=== PATIENT | male | born 1945 | race Caucasian/White ===

== ENCOUNTER 2023-11-25 09:57 | Emergency (ER) | payer MEDICARE, OTHER, SELFPAY ==
[2023-11-25 09:59] VITALS: BP 113/64
[2023-11-25 10:05] VITALS: BMI 26.6
--- NOTE | 2023-11-25 10:10 | ED.GENMED ---
History of Present Illness
General
Chief Complaint: Musculo-Skeletal Complaint
Time Seen by Provider: 11/25/23 10:09
Travel History
Have you had any contact with someone who has COVID-19?: No
Do you have any symptoms of coronavirus? Fever > 100 degrees, chills, cough, shortness of breath, sore throat, loss of taste or smell, muscle aches, or headache?: No
History of Present Illness
History of Present Illness:
HPI: Earlier today, the patient had some discomfort in the right low back region. He has a history of stroke with right-sided deficits. As he tried to swing his right leg over the lip of the shower floor, he lowered himself to the ground but did
not injure himself. He had trouble getting back up so EMS was called. EMS brought him here. He continues to feel the degree of 'instability' in the affected area.
EXAM:
GENERAL: Well appearing in no distress
HEENT: Moist oral mucosa
CARDIOVASCULAR: No murmurs, normal heart rate, regular rhythm, No chest wall tenderness
PULMONARY: No respiratory distress, breath sounds are clear and equal
ABDOMEN: Soft with no peritoneal signs, no tenderness
NEUROLOGIC: Weakness noted right upper and right lower extremities however the patient was able to take a few steps to the ED next with structure without assistance, no coordination deficits, no left-sided deficits
PSYCHIATRIC: Appropriate mental status, normal insight and judgement
EXTREMITIES: Nontender, no edema, moves all extremities equally
BACK: There is no midline T or L-spine tenderness, there is some vague discomfort to palpation just above the right PSIS however he describes the discomfort more of a 'instability'
SKIN: No rash, no lesions
TIME OF INITIAL ENCOUNTER: 10:10 AM
NUMBER AND COMPLEXITY OF PROBLEMS ADDRESSED AT THE ENCOUNTER
� Chronic conditions affecting care: Patient is had CVA in the past with right-sided deficits, diet-controlled diabetes
� Acute Exacerbation and/or Progression of Chronic Illness: This is an acute problem
� Differential Diagnosis includes: Ureteral stone unlikely, worsening spinal stenosis, pelvis fracture, lumbar fracture, myofascial/ligamentous injury
AMOUNT AND/OR COMPLEXITY OF DATA TO BE REVIEWED AND ANALYZED
� I performed an independent evaluation of and my interpretation is:
EKG:
CT: CT imaging reviewed and agree with radiologist interpretation.
X-rays:
Laboratory Studies:
Other:
� Review of other/old records: No old records available for review
� Clinical information was obtained by an independent historian: I spoke to at bedside
� Prescriptions/Medications Considered but not given:
� Further testing considered but not performed:
RISK OF COMPLICATIONS AND/OR MORBIDITY OR MORTALITY OF PATIENT MANAGEMENT
� Social determinants of health affecting care: Lives at home
� Discussion with other providers:
� Escalation of care including admission/observation vs risk of discharge considered: Will obtain CT imaging given patient's age. He declines analgesia. The patient was able to walk without any significant assistance. He does
have chronic right sided weakness related to prior stroke. No clear concerning acute finding on imaging today. I did inform him of the bladder stone and he has been seeing urology and has had a cystoscopy in the past. I have given contact
information for local back specialist as well as urology.
Phy Exam
Physical Exam
Physical Exam:
See HPI
Course
Orders/Labs/Results
Orders:
Orders
11/25/23 10:16
CT Lumbar Spine W/o Iv Contras Urgent
Comment:
Reason For Exam: pain fall instability R back
11/25/23 10:17
CT Abd/pel Without Iv Or Oral Urgent
Comment:
Reason For Exam: pain fall instability R back
Vital Signs
Initial and Last Documented VS:
Initial Vital Signs
Temp Pulse Resp BP Pulse Ox
97.6 F 62 16 113/64 96
11/25/23 09:59 11/25/23 09:59 11/25/23 09:59 11/25/23 09:59 11/25/23 09:59
Last Documented Vital Signs
Temp Pulse Resp BP Pulse Ox
97.6 F 62 16 112/50 96
11/25/23 09:59 11/25/23 09:59 11/25/23 09:59 11/25/23 11:16 11/25/23 10:14
*Critical Care Note
Total Time (30-74mins, 75-104mins- exclusive of procedures): Not Applicable
ED Attending Note
-
Portions of this chart may have been created with voice recognition software.� Occasional wrong word or��sound alike� substitutions may have occurred due to the inherent limitations of voice recognition software.
Discharge Plan
Departure
Patient Disposition: Home (Routine Discharge)
Date of Disposition: 11/25/23
Time of Disposition: 12:35
Patient with high blood pressure during this ER visit?: Yes
Discharge Problem:
Back pain
Referrals:
Ced Mckoy DO [Non-Admitting Privileges] - Follow up in 2-3 days
Farhad Booker MD [Family Provider] -
Cari Senior DO [Active] - Follow up in 2-3 days
Mauro Pennington MD [Active] - Follow up in 2-3 days
Nemesio Melgoza MD [Active] - Follow up in 2-3 days
Activity Restrictions/Additional Instructions:
I have given you the contact information for local back specialists. CT of the lumbar spine shows mild central canal stenosis exacerbated by multilevel lumbar degenerative disc disease, CT of the abdomen pelvis shows a 1.8 cm stone in the bladder,
enlarged prostate, and gallstones. I have also given the contact information for a local urologist, Dr. Pennington.
Interventions
Interventions:
*Risk Screen - Suicide Last Done: 11/25/23 10:06
*General Assessment Last Done: 11/25/23 10:05
*Neglect/Abuse Screening Last Done: 11/25/23 10:06
*ED COVID-19 Vaccine History Last Done: 11/25/23 10:05
ED-Musculoskeletal Assessment Last Done: 11/25/23 10:06
Discharge Date and Time
Print Language: UKRAINIAN
[2023-11-25 11:16] VITALS: BP 112/50
[2023-11-25 12:48] VITALS: BP 116/65
== END 2023-11-25 13:00 | disposition home or self-care (01) ==
LOC: EMR 09:57
PROVIDERS: EMERGENCY PHYSICIAN Emergency Medicine; FAMILY PHYSICIAN Family Medicine
DX: M54.9 Dorsalgia, unspecified (principal); N21.0 Calculus in bladder; I10 Essential (primary) hypertension
CPT/HCPCS: 99284; 72131; 74176

== ENCOUNTER 2024-04-06 17:33 | Inpatient (IN) | payer MEDICARE, OTHER, SELFPAY ==
[2024-04-06] VITALS (14 sets, daily range): BP systolic 126–158; BP diastolic 61–90; PULSE 71; O2SAT 99; BMI 25.9
[2024-04-06 12:38] LABS: % Basophils 0.4 % (0-2); % Eosinophils 0.2 % (0-6); % Immature Granulocytes 0.2 % (0-0.5); % Lymphocytes 13.3 % (20.5-51.1); % Monocytes 6.1 % (1.7-9.3); % Neutrophils 79.8 % (42.2-75.2); Absolute Basophils 0.1 10^3/uL (0-0.2); Absolute Lymphocytes 1.5 10^3/uL (1.2-3.4); Absolute Monocytes 0.7 10^3/uL (0.1-0.6); Absolute Neutrophils 8.9 10^3/uL (1.4-6.5); Hematocrit 43.1 % (39.0-52.0); Hemoglobin 14.7 g/dL (13.0-18.0); Mean Corp Hgb Conc. 34.1 g/dL (33.0-37.0); Mean Corpuscular Hgb 31.7 pg (27.0-31.0); Mean Corpuscular Volume 93.1 fL (80.0-94.0); Mean Platelet Volume 10.3 fL (7.4-10.4); Nucleated Red Blood Cells % 0 % (-); Platelet Count 227 10^3/uL (130-400); Red Blood Cell Count 4.63 10^6/uL (4.70-6.10); Red Cell Dist. Width 13.8 % (11.5-14.5); White Blood Cell Count 11.1 10^3/uL (4.8-10.8)
[2024-04-06 13:03] LABS: Blood Urea Nitrogen 41 mg/dl (9-20); Calcium 10.8 mg/dl (8.4-10.2); Carbon Dioxide 26 mmol/L (22-30); Chloride 105 mmol/L (98-107); Glucose 103 mg/dl (70-99); Sodium 141 mmol/L (135-145); eGFR 56.58
[2024-04-06] MEDS: VALIUM INJECTION 2 MG IV (14:04)
[2024-04-06] MEDS: DECADRON 10 MG IV (14:04)
--- NOTE | 2024-04-06 14:10 | ED.GENMED ---
History of Present Illness
General
Chief Complaint: Abdominal Symptoms
Source: patient
Exam Limitations: none
Time Seen by Provider: 04/06/24 13:13
Nursing documentation reviewed up to this point in time: agreed with
History of Present Illness
History of Present Illness:
78-year-old male past medical history of CAD hypertension hyperlipidemia, previous GI bleed, diabetes presenting to the emergency department today with concerns of right-sided low back discomfort starting 5 days ago was prescribed Flexeril started
taking this yesterday evening. Throughout the night he had some diarrhea and also had some difficulty urinating this morning. Does have a history of significantly enlarged prostate and does have difficulty urinating at baseline has required Macdonald
catheters many times in the past. He has had worsening lower abdominal to his lack of urination. Additionally has had ongoing low back pain. Has had trouble ambulating today.
Review of Systems
Review of Systems
Allergies reviewed?: Yes
All Other Systems: ROS reviewed and negative except as documented in HPI and ROS
Phy Exam
Physical Exam
Physical Exam:
GENERAL: Alert , in no apparent distress
EYE: pupils equal and reactive
NECK: Supple, no significant adenopathy.
ENT: o/p clr, mmm.
CARDIAC: Regular rate and rhythm .
LUNGS: Clear breath sounds bilaterally, no acute respiratory distress, no wheezes/rales/rhonchi
ABDOMEN: Discomfort and distention to the suprapubic region otherwise soft, without focal tenderness, no r/g, no cvat
NEUROLOGICAL: Alert and oriented, no focal neuro deficits
SKIN: Warm and dry, skin intact.
MUSCULOSKELETAL: No edema, well perfused.
PSYCH: Normal and appropriate interaction.
Course
Orders/Labs/Results
Orders:
Orders
04/06/24 12:22
Basic Metabolic Panel Urgent
Complete Blood Count/With Diff Urgent
04/06/24 13:27
CT Abd/pel Without Iv Or Oral Urgent
Comment:
Reason For Exam: flank pain
Dexamethasone Sod Phosphate [Decadron] 10 mg IV NOW STA
diazePAM [Valium Injection] 2 mg IV NOW STA
04/06/24 13:52
Urinalysis Reflex To Culture Urgent
Date Specimen was Collected: 04/06/24
Time Specimen was Collected: 13:39
Urine Microscopic Reflex Cult Urgent
Urine Culture Urgent
YASH Source: U
Specimen Description:
Date Specimen was Collected: 04/06/24
Time Specimen was Collected: 13:39
04/06/24 14:39
Pt Eval And Treat Urgent
Treatment: back issue, eval for ambulatory status
Activity Level: Ambulate
04/06/24 16:10
CefTRIAXone [Rocephin] 1,000 mg IV NOW STA
HYDROmorphone [Dilaudid] 1 mg IV NOW STA
Abnormal Lab Results
04/06/24 04/06/24
12:22 13:52
WBC 11.1 H 10^3/uL
(4.8-10.8)
RBC 4.63 L 10^6/uL
(4.70-6.10)
MCH 31.7 H pg
(27.0-31.0)
Absolute Neuts (auto) 8.9 H 10^3/uL
(1.4-6.5)
Absolute Monos (auto) 0.7 H 10^3/uL
(0.1-0.6)
Neutrophils % 79.8 H %
(42.2-75.2)
Lymphocytes % 13.3 L %
(20.5-51.1)
BUN 41 H mg/dl
(9-20)
Glucose 103 H mg/dl
(70-99)
Calcium 10.8 H mg/dl
(8.4-10.2)
Ur Occult Blood Reflex 1+ A
(Negative)
Leukocyte Esterase Rfl 2+ A
(Negative)
Urine RBC 30-40 A /HPF
(0-2)
Urine WBC (Reflex) 90-100 A /HPF
(0-5)
04/06/24 12:22
04/06/24 12:22
Vital Signs
Initial and Last Documented VS:
Initial Vital Signs
Temp Pulse Resp BP Pulse Ox
98.3 F 83 18 149/86 97
04/06/24 12:15 04/06/24 12:15 04/06/24 12:15 04/06/24 12:15 04/06/24 12:15
Last Documented Vital Signs
Temp Pulse Resp BP Pulse Ox
98.3 F 71 12 135/76 96
04/06/24 12:15 04/06/24 16:15 04/06/24 16:15 04/06/24 16:00 04/06/24 16:15
MDM/Problems Addressed
MDM/Problems Addressed:
78-year-old male presenting to the emergency department today with concerns of right-sided low back discomfort over the past 5 days progressing over the past 5 days. Started Flexeril last night had some diarrhea as well as difficulty urinating this
morning. Denies any numbness weakness to his lower extremities or any saddle anesthesia. Does not seem to be consistent with cauda equina. Patient does frequently have difficulty with urination likely secondary to his significantly enlarged
prostate at baseline. Cauda equina seems less likely considering no additional neurologic symptoms. Patient does have conditions predisposing to retention. Urine did come back with white blood cells and leuks plan to start antibiotics as this
could be contributory. White count of 11.1. Otherwise CT scan showing dilatation to the ureter. Also a possible stone but seems less likely according to radiology Case was discussed with urology that agrees and feels this does not appear to be an
obstructing stone. Patient was seen by PT unable to ambulate plan to admit for pain control and further monitoring of patient's UTI in setting of solitary kidney.
*Critical Care Note
Total Time (30-74mins, 75-104mins- exclusive of procedures): Not Applicable
ED Attending Note
-
Portions of this chart may have been created with voice recognition software.� Occasional wrong word or��sound alike� substitutions may have occurred due to the inherent limitations of voice recognition software.
Discharge Plan
Departure
Patient Disposition: Admit
Date of Disposition: 04/06/24
Time of Disposition: 16:25
Admit to: Med/Surg
Admit to doctor: Hayley
Presentation/result/management discussed w/ accepting MD/DO: Hospitalist
Patient with high blood pressure during this ER visit?: No
Condition: Good
Covid-19: Not Applicable
Discharge Problem:
Back pain, Acute UTI, Acute urinary retention
Prescriptions:
No Action
hydrocodone-acetaminophen 5-325 mg tablet
1 tab PO Q8H PRN (Reason: Pain) Qty: 14 0RF
Referrals:
Farhad Booker MD [Family Provider] -
Interventions
Interventions:
*Risk Screen - Suicide Last Done: 04/06/24 12:15
*General Assessment Last Done: 04/06/24 12:15
*Neglect/Abuse Screening Last Done: 04/06/24 12:15
WM-Fswpmz-Ktosxkjzsr Assessment Last Done: 04/06/24 12:34
Discharge Date and Time
Print Language: SYRIAC
[2024-04-06 14:13] LABS: Urine Albumin Trace (Neg - Trace); Urine Bilirubin Negative (Negative); Urine Character Clear (Clear); Urine Color Yellow; Urine Glucose Negative (Negative); Urine Ketone Negative (Negative); Urine Leukocyte 2+ (Negative); Urine Nitrite Negative (Negative); Urine Occult Blood 1+ (Negative); Urine Urobilinogen Negative (Neg - 1+)
[2024-04-06 15:19] LABS: Urine Red Blood Cell 30-40 /HPF (0-2); Urine Squamous Cell 0-2 /LPF (Few); Urine White Cell 90-100 /HPF (0-5)
--- NOTE | 2024-04-06 16:27 | HPS.HSE ---
Addendum entered and electronically signed by Gus Mckeon MD 04/06/24 17:21:
see update note for addendum
Original Note:
Family Physician
-
Family Physician: Farhad Booker
Chief Complaint
-
right lower back pain
History of Present Illness
78-year-old male past medical history of CAD hypertension hyperlipidemia, previous GI bleed, diabetes presenting to the emergency department today with concerns of right-sided low back discomfort starting 5 days ago was prescribed Flexeril started
taking this yesterday evening. Throughout the night he had some diarrhea and also had some difficulty urinating since he started Flexeril. today morning he was not able to stant, walk and can not place any pressure on his legs. it aggravates his
pain. patient denied SETHI, dizzy or syncopal episode. denied fever, chills, chest pain, sob.denied abdominal pain,n,v.
UPon arrival noted to have UA. still with significant right lower back pain. received iv ceftriaxone,ceftriaxone, Valium and Dilaudid in ER. admitting for further management.
Medical History
Past Medical History
Past Medical History: Reports Other
Additional Past Medical History:
Diabetes
Hypertension
High cholesterol
left kidney tumor
CVA
Past Surgical History: Reports Other
Additional Past Surgical History:
Removal of left kidney
cervical fusion
Coronary artery bypass graft
Social History
Tobacco: Former Smoker
Alcohol: None
Drug: None
Personal:
Living: With Family
Family History
Family History: Not pertinent
Allergies / Home Medications
Allergies reflects when Allergies were last updated in [facility].
Home Medications with original date entered in [facility]
Allergy/Medication List:
Allergies
Allergy/AdvReac Type Severity Reaction Status Date / Time
No Known Allergies Allergy Verified 04/06/24 12:15
Home Medications
acetaminophen 650 mg tablet,extended release 1,300 mg PO BID 04/06/24
amlodipine 5 mg tablet 5 mg PO HS 04/06/24
ascorbic acid (vitamin C) 1,000 mg tablet (Vitamin C) 1,000 mg PO DAILY 04/06/24
chlorthalidone 25 mg tablet 25 mg PO Q48H 04/06/24
cholecalciferol (vitamin D3) 25 mcg (1,000 unit) tablet 25 mcg PO DAILY 04/06/24
clopidogrel 75 mg tablet 75 mg PO DAILY 04/06/24
cyclobenzaprine 10 mg tablet 10 mg PO TIDPRN PRN muscle spasm 04/06/24
finasteride 5 mg tablet 5 mg PO DAILY 04/06/24
gabapentin 100 mg capsule 100 mg PO HS 04/06/24
pitavastatin calcium 2 mg tablet 2 mg PO Q48H@2200 04/06/24
ramipril 10 mg capsule 10 mg PO HS 04/06/24
tamsulosin 0.4 mg capsule 0.4 mg PO BID 04/06/24
Review of Systems
-
Constitutional: Reports No Symptoms
EENT: Reports No Symptoms
Respiratory: Reports No Symptoms
Cardiac: Reports No Symptoms
Abdomen/GI: Reports No Symptoms
: Reports No Symptoms
Musculoskeletal: Reports Other (right lower back)
Skin: Reports No Symptoms
Neurological: Reports No Symptoms
Endocrine: Reports No Symptoms
Hematologic/Lymphatic: Reports No Symptoms
Psych: Reports No Symptoms
Physical Exam
Vital Signs
Vital Signs
Temp Pulse Resp BP Pulse Ox
98.3 F 71 12 135/76 96
04/06/24 12:15 04/06/24 16:15 04/06/24 16:15 04/06/24 16:00 04/06/24 16:15
Physical Exam
General: Well Developed, Well Nourished and No Apparent Distress
HEENT: NormoCephalic, Moist mucous membranes and Atraumatic
Respiratory: Clear
Cardiac: S1/S2 and Regular Rhythm; No Murmur or Rub
GI: Soft, Non Tender, Non Distended and Normal Bowel Sounds; No Organomegaly
Rectal: Deferred by Provider
Genito-urinary: Macdonald
Musculoskeletal: No Clubbing, No Cyanosis and Other (LE edema)
Skin: No Rash
Neuro: AO x 3 and Nonfocal/grossly intact
Psych: Calm
Laboratory Results
-
04/06/24 12:22
04/06/24 12:22
Laboratory Results
Total Bilirubin Cancelled 04/06/24 12:22
AST Cancelled 04/06/24 12:22
ALT Cancelled 04/06/24 12:22
Alkaline Phosphatase Cancelled 04/06/24 12:22
Data Reviewed
-
CT Scan: Report Reviewed by me
Lab Data: Labs Reviewed by me
Impression/Plan
-
#back pain likely UTI/possible right UVJ calculus
#solitary kidney due to malignant tumor
-wbc 11.1
-CT abdomen pelvis with Status post left nephrectomy.3 mm nephrolith in the lower pole of the right kidney. There is diffuse right ureteral and right pelvicalyceal dilation extending to the right ureterovesical junction. There is a small
calcification near the junction of the of the superior prostate and the collapsed bladder, just right lateral to the Macdonald catheter. This would seem to be more medial than expected for a right ureterovesical junction calculus, but could possibly be
a right UVJ calculus, with anatomic distortion due to the collapsed bladder. Other main differential consideration for right ureteral obstruction would be due to the enlarged prostate gland.Cholelithiasis. No CT findings to suggest acute
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
syndesmophytes in the lower thoracic and upper lumbar spine.ot mentioned above, on workforce services representative radiograph, the scrotum appears distended. The scrotum is incompletely included on the field of view, but there appears to be increased fluid density within the
visualized upper scrotum.
-iv ceftriaxone continued
-Lidocaine patch, Dilaudid and tramadol continued for pain
-heating pad
-urology consulted
#ambulatory dysfunction likely from back pain
- PT/OT consult
# Essential hypertension
-Blood pressure stable
-Norvasc, chlorthalidone, ramipril continued with hold parameters
# History of coronary artery disease status post coronary stents
-Plavix continued
# History of CVA
# History of BPH
-Finasteride, tamsulosin continued
# Neuropathy
-gabapentin continued
# Hyperlipidemia
- statin continued
# DVT prophylaxis
- SCD
# CODE STATUS
-Full code
[2024-04-06] MEDS: ROCEPHIN 1000 MG IV (16:36)
[2024-04-06] MEDS: DILAUDID 1 MG IV (16:36)
--- NOTE | 2024-04-06 17:21 | W.PN.UPDATE ---
Update Note
Progress Note Update
I saw and examined the patient.
The MACHINE EGG WASHER Olvin's note was reviewed and I agree with the note.
Comment: 78 y/o M, hx of CAD, HTN, HLD, prior hx of GI bleed from NSAIDs, DM, presents to ER with 5 day history of R sided back pain, 6/10, worse with standing up, nonradiating, sharp in character. No trauma or recent spinal procedures/injections
etc. Prescribed Flexeril but resulted in diarrhea, urinary retention, did not provide relief of pain. Presented to ER due to ambulatory function, seen by PT/OT recommended for SNF and admitted for pain control. Also concern for UTI - started on IV
Abx and Urology consulted. Macdonald is in place.
Physical Exam
General: Well Developed, Well Nourished and No Apparent Distress
HEENT: Normocephalic, Moist mucous membranes and Atraumatic
Respiratory: Clear
Cardiac: S1/S2 and Regular Rhythm; No Murmur or Rub
GI: Soft, Non Tender, Non Distended and Normal Bowel Sounds; No Organomegaly
Rectal: Deferred by Provider
Genito-urinary: Macdonald
Musculoskeletal: No Clubbing, No Cyanosis and Other (LE edema)
Skin: No Rash
Neuro: AO x 3 and Nonfocal/grossly intact
Psych: Calm
Assessment:
Acute back pain
Reported history of spinal stenosis and spinal arthritis
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
- pain control
- note cannot have NSAIDs due to prior hx of GI bleed
- Also refuses Flexeril due to side effects
- add lidocaine patches, heat
- consider further IV steroids - will assess response of ER dose first
- PT/OT - currently recommended SNF
- request spinal ortho evaluation - patient seen by Dr. Senior previously
UTI
Hx of BPH
Hx of Solitary Kidney (L nephrectomy for tumor)
- CT abdomen pelvis with Status post left nephrectomy.3 mm nephrolith in the lower pole of the right kidney. There is diffuse right ureteral and right pelvicaliceal dilation extending to the right ureterovesical junction. There is a small
calcification near the junction of the of the superior prostate and the collapsed bladder, just right lateral to the Macdonald catheter. This would seem to be more medial than expected for a right ureterovesical junction calculus, but could possibly be
a right UVJ calculus, with anatomic distortion due to the collapsed bladder. Other main differential consideration for right ureteral obstruction would be due to the enlarged prostate gland.
- Empiric Rocephin, pending culture
- Urology consult
- continue BPH meds
- continue Macdonald
Ambulatory dysfunction from acute back pain
- PT/OT evals
Essential HTN
- continue Norvasc, Chlorthalidone, Ramipril
Hx of CAD s/p stents
- continue Plavix
Hx of CVA
- continue Plavix
Neuropathy
- gabapentin continued
Hyperlipidemia
- statin continued
DVT prophylaxis: Lovenox
Code: Full
--- NOTE | 2024-04-06 19:19 | PTCARENOTE ---
Pt arrived from ED via stretcher, transferred to bed. Pt aaox3, cooperative. denies pain, sob or dizziness. anderson draining yellow/ blood tinged urine with small clots. oriented to room. call white within reach.
--- NOTE | 2024-04-06 20:21 | CON.MD ---
Consultation - Medical
-
see dictated note
pt long standing pt of dr rose at [facility]
seen within the last 2-3 months
hx of left nx for tumor in the
long standing hx of bph and known bladder stone- being observed
takes flomax bid and proscar
has generally not a sense of incomplete emptying
recent sever back pain- put on flexeril
went into [facility]- in ER anderson placed 800cc of urine
ua +
ct shows hydro and hydro-ureter down to bladder c/w BPH/obstruction- bladder stone present
cr at baseline
pt's urine octavio (he is on plavix and now lovenox)
plan
continue anderson and prostate meds
observe for hematuria- may need temp hold of lovenox and plavix
excellent UO- so kidney is not obstructed
f/u ucx
pt should be discharged with anderson given ER/CT findings and mobility limitations and f/u with dr rose after discharge to discuss management
[2024-04-06] MEDS: FLOMAX 0.4 MG PO (21:36)
[2024-04-06] MEDS: LOVENOX 40 MG SC (21:36)
[2024-04-06] MEDS: NEURONTIN 100 MG PO (21:37)
[2024-04-06] MEDS: ALTACE 10 MG PO (21:37)
[2024-04-06] MEDS: NORVASC 5 MG PO (21:37)
[2024-04-07] MEDS: ULTRAM 50 MG PO ×2 (01:53→21:26)
[2024-04-07 05:01] LABS: Hematocrit 44.1 % (39.0-52.0); Hemoglobin 15.2 g/dL (13.0-18.0); Mean Corp Hgb Conc. 34.5 g/dL (33.0-37.0); Mean Corpuscular Hgb 32.9 pg (27.0-31.0); Mean Corpuscular Volume 95.5 fL (80.0-94.0); Mean Platelet Volume 10.3 fL (7.4-10.4); Platelet Count 217 10^3/uL (130-400); Red Blood Cell Count 4.62 10^6/uL (4.70-6.10); Red Cell Dist. Width 13.6 % (11.5-14.5); White Blood Cell Count 8.9 10^3/uL (4.8-10.8)
--- NOTE | 2024-04-07 05:09 | W.PN.URO.CBU ---
Today's Communication / Plan
-
continue anderson
await ucx
Assessment / Plan
-
urinary retention
BPH
bladder stone
UTI
solitary right kidney with hydro secondary to BPH
appears urologically stable
continue proscar and flomax
await ucx
eventual discharge with catheter and outpt f/u with his usual urologist
Diagnosis
-
Date of Service: April 07, 2024
-
Patient Diagnosis:
urinary retention
massive BPH
bladder stone
solitary kidney
UTI
Subjective
-
pt comfortable
still with back pain with movement
good UO- octavio with sediment- ucx pending
Objective
-
Vital Signs
Temp Pulse Resp BP Pulse Ox
97.5 F 76 18 139/73 969
04/06/24 23:43 04/06/24 23:43 04/06/24 23:43 04/06/24 23:43 04/06/24 23:43
Laboratory Results
04/07/24 04:36
Review of Systems
-
Constitutional: Fatigue
Respiratory: No Symptoms
Cardiac: No Symptoms
Abdomen/GI: No Symptoms
Physical Exam
-
General - no acute distress
Abdomen - soft, non-tender
Genitalia - anderson in place
[2024-04-07 05:36] LABS: Blood Urea Nitrogen 39 mg/dl (9-20); Calcium 10.7 mg/dl (8.4-10.2); Carbon Dioxide 27 mmol/L (22-30); Chloride 105 mmol/L (98-107); Estimated Creatinine Clearance 57 ml/min; Glucose 123 mg/dl (70-99); Potassium 4.3 mmol/L (3.5-5.1); Sodium 143 mmol/L (135-145); eGFR > 60.00
[2024-04-07 07:40] VITALS: BP 137/83
[2024-04-07 09:10] VITALS: BP 135/77; PULSE 76; O2SAT 97
[2024-04-07] MEDS: PROSCAR 5 MG PO (09:18)
[2024-04-07] MEDS: Hygroton 25 MG PO (09:18)
[2024-04-07] MEDS: FLOMAX 0.4 MG PO ×2 (09:18→20:34)
[2024-04-07] MEDS: PLAVIX 75 MG PO (09:18)
[2024-04-07] MEDS: DESENEX/MITRAZOL/ZEASORB 1 APPLIC TOPICAL ×2 (09:20→20:35)
--- NOTE | 2024-04-07 12:33 | W.PN.HOSP.TC ---
Today's Communication/Plan
-
ongoing rehab evals
continue IV Abx pending cultures
Assessment / Plan
Assessment / Plan
Assessment:
Acute back pain
Reported history of spinal stenosis and spinal arthritis
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
- pain control
- note cannot have NSAIDs due to prior hx of GI bleed
- Also refuses Flexeril due to side effects
- continue lidocaine patches, heat
- s/p 1 dose IV steroids
- PT/OT - currently recommended SNF vs home. Ongoing PT/OT evals
- request spinal ortho evaluation - patient seen by Dr. Senior previously but this doctor is not practicing at any longer.
complicated UTI
Hx of BPH
Hx of Solitary Kidney (L nephrectomy for tumor)
- CT abdomen pelvis with Status post left nephrectomy.3 mm nephrolith in the lower pole of the right kidney. There is diffuse right ureteral and right pelvicaliceal dilation extending to the right ureterovesical junction. There is a small
calcification near the junction of the of the superior prostate and the collapsed bladder, just right lateral to the Macdonald catheter. This would seem to be more medial than expected for a right ureterovesical junction calculus, but could possibly be
a right UVJ calculus, with anatomic distortion due to the collapsed bladder. Other main differential consideration for right ureteral obstruction would be due to the enlarged prostate gland.
- Empiric Rocephin, day 2, pending culture
- Urology consulting; recommending Macdonald at [facility] and f/u with [facility]
- continue BPH meds
Ambulatory dysfunction from acute back pain
- PT/OT evals ongoing
Essential HTN
- continue Norvasc, Chlorthalidone, Ramipril
Hx of CAD s/p stents
- continue Plavix
Hx of CVA
- continue Plavix
Neuropathy
- gabapentin continued
Hyperlipidemia
- statin continued
DVT prophylaxis: SCDs
Code: Full
Anticipated Discharge: 24 - 48 hours
Subjective/Interval History
-
Date of Service: April 07, 2024
back pain improving with Macdonald insertion and decompression
remain on IV Abx
did ok with Pt per his report
Objective Data
-
Labs:
Laboratory Results
04/07/24
04:36
WBC 8.9
Hgb 15.2
Hct 44.1
Plt Count 217
Sodium 143
Potassium 4.3
Chloride 105
Carbon Dioxide 27
BUN 39 H
Creatinine 1.2
Glucose 123 H
Calcium 10.7 H
Vital Signs:
Vital Signs
Temp Pulse Resp BP Pulse Ox
99.3 F 86 16 137/83 97
04/07/24 07:40 04/07/24 07:40 04/07/24 07:40 04/07/24 09:18 04/07/24 07:40
I&O
04/06/24 04/07/24 04/08/24
06:59 06:59 06:59
Intake Total 720 / 720
Output Total 1025 / 1025
Balance -305 / -305
Physical Exam
-
General: No Apparent Distress
HEENT: Normocephalic and Atraumatic
Respiratory: Negative Wheezes
Cardiac: Regular Rhythm and S1/S2
GI: Soft
Genito-urinary: No Costovertebral Tender and Macdonald (octavio)
Neuro: AO x 3
Psych: Calm
Data Reviewed
-
Total Time Spent with Patient (in minutes): 42
Labs: Labs Reviewed by me
--- NOTE | 2024-04-07 13:13 | CM ---
Addendum entered by Eleonora Roach 04/07/24 14:55:
CM met with Yossi and his this afternoon. Yossi is feeling a lot better and anticipates returning home at discharge. He does not think he will need home care and will be going to see his urologist to have the anderson removed early next week.
Yossi's only concern is getting into the house; he has 3 entry steps from his garage which are the only way he can get into the house. PT is aware of this and there is a plan for working on stairs with therapy tomorrow. If he does well he will not
need home health. If he is concerned about strengthening, he may want to consider home care services.
Plan: Discharge to home with home care vs. no needs; to be determined by therapy results tomorrow.
Original Note:
CM met with Yossi to complete IA. He was admitted with urinary retention and back pain; anderson in place; unclear if that will remain at discharge.
Yossi lives with his in a 2 story home with 3 entry steps. Yossi is nervous about the entry steps.
He stays on the first floor where he has his bed (with rails) and bathroom. Yossi has a cane, RW and w/c at home, but has not been using.
He was seen earlier today walking slowly with therapy using a RW on the unit. Home Care would be an option if desired for anderson care and/or continued therapy. Current recommendations are for home health vs. SNF.
Plan: CM will continue to follow to assist with discharge planning needs; likely home with home health services.
PCP: Farhad Booker
Pharmacy: [facility] on [facility] in [place]
[2024-04-07 15:17] VITALS: BP 138/81; PULSE 74; O2SAT 98
[2024-04-07 15:40] VITALS: BP 134/70
[2024-04-07] MEDS: ROCEPHIN 1000 MG IV (17:28)
[2024-04-07] MEDS: STERILE WATER FOR INJECTION 10 ML IV (17:28)
[2024-04-07] MEDS: FLUSH (NSS) 2 FLUSH IV (17:29)
[2024-04-07] MEDS: LIDOCAINE 4% PATCH 1 PATCH TOPICAL (20:34)
[2024-04-07] MEDS: ALTACE 10 MG PO (21:26)
[2024-04-07] MEDS: NORVASC 5 MG PO (21:26)
[2024-04-07] MEDS: NEURONTIN 100 MG PO (21:27)
[2024-04-07] MEDS: LIPITOR 10 MG PO (21:28)
[2024-04-07 23:58] VITALS: BP 118/60
--- NOTE | 2024-04-08 06:17 | W.PN.URO.CBU ---
Today's Communication / Plan
-
continue f/u
outpt f/u with his established urologist
Assessment / Plan
-
urinary retention
BPH
bladder stone
UTI
solitary right kidney with hydro secondary to BPH
appears urologically stable
continue proscar and flomax
await ucx- treat as indicated
pt is making appointment to f/u with his established urologist
will follow peripherally- call with any questions
Diagnosis
-
Date of Service: April 08, 2024
-
Patient Diagnosis:
urinary retention
massive BPH
bladder stone
solitary kidney
UTI
Subjective
-
pt stable urologically
anderson in- urine clear
cr at baseline
ucx still pending
back pain better- but still limiting
Objective
-
Vital Signs
Temp Pulse Resp BP Pulse Ox
97.7 F 62 18 118/60 94
04/07/24 23:58 04/07/24 23:58 04/07/24 23:58 04/07/24 23:58 04/07/24 23:58
Intake and Output
04/06/24 04/07/24 04/08/24
06:59 06:59 06:59
Intake Total 720 / 720
Output Total 1025 / 1025
Balance -305 / -305
Intake:
Oral fluids 720 / 720
Output:
Urine, Anderson 1025 / 1025
Physical Exam
-
General - no acute distress
[2024-04-08 06:47] LABS: Mean Corp Hgb Conc. 34.1 g/dL (33.0-37.0); Mean Corpuscular Hgb 32.6 pg (27.0-31.0); Mean Corpuscular Volume 95.6 fL (80.0-94.0); Mean Platelet Volume 10.6 fL (7.4-10.4); Platelet Count 203 10^3/uL (130-400); Red Blood Cell Count 4.29 10^6/uL (4.70-6.10); Red Cell Dist. Width 13.9 % (11.5-14.5); White Blood Cell Count 9.3 10^3/uL (4.8-10.8)
[2024-04-08] MEDS: ULTRAM 50 MG PO (06:48)
[2024-04-08 07:28] LABS: Blood Urea Nitrogen 50 mg/dl (9-20); Calcium 10.6 mg/dl (8.4-10.2); Carbon Dioxide 29 mmol/L (22-30); Chloride 103 mmol/L (98-107); Estimated Creatinine Clearance 52 ml/min; Glucose 84 mg/dl (70-99); Potassium 4.2 mmol/L (3.5-5.1); Sodium 140 mmol/L (135-145); eGFR 56.58
[2024-04-08 07:40] VITALS: BP 124/57
[2024-04-08] MEDS: PLAVIX 75 MG PO (09:06)
[2024-04-08] MEDS: FLOMAX 0.4 MG PO ×2 (09:06→20:03)
[2024-04-08] MEDS: DESENEX/MITRAZOL/ZEASORB 1 APPLIC TOPICAL ×2 (09:06→20:04)
[2024-04-08] MEDS: PROSCAR 5 MG PO (09:07)
--- NOTE | 2024-04-08 09:21 | PHA.VAN.IN ---
Assessment
- Assessment
Renal Function: Appears similar to baseline
Plan
- Plan
Initial / Loading Dose: 2000mg - administration pending
Maintenance Regimen: dosing by level
Monitoring: random 04/09 600
Will start with dose by level for now to ensure clearing appropriately with solitary kidney
Pharmacokinetics Vancomycin I
- -
Patient Age: 78
Patient Sex: Male
Vancomycin Day #: 1
Indication: Genito-Urinary Tract
Requesting Provider: Dr. Mckeon
Pertinent Antimicrobial Allergies:
NKDA
Height / Weight:
Height 6 ft
Actual Weight 86.636 kg
Pertinent Past Medical History: Solitary R. kidney
- Vital Signs / Lab Results
Temp Pulse Resp BP Pulse Ox
97.6 F 55 16 124/57 98
04/08/24 07:40 04/08/24 07:40 04/08/24 07:40 04/08/24 07:40 04/08/24 07:40
Lab Results - Hematology
04/06/24 04/07/24 04/08/24
12:22 04:36 05:00
WBC 11.1 H 8.9 9.3
Lab Results - Chemistry
04/06/24 04/07/24 04/08/24
12:22 04:36 05:00
BUN 41 H 39 H 50 H
Creatinine 1.3 1.2 1.3
Estimated Creat Clear 57 52
Albumin Cancelled
Lab Results - Urine
04/06/24
13:52
Urine Nitrite (Reflex) Negative
Leukocyte Esterase Rfl 2+ A
Urine WBC (Reflex) 90-100 A
Ur Squamous Epith Cells 0-2
Microbiology Results
04/06/24 13:52 Urine Culture - Preliminary
Urine Enterococcus species
[2024-04-08] MEDS: VANCOCIN 540 MG IV (09:43)
--- NOTE | 2024-04-08 11:42 | W.PN.HOSP.TC ---
Today's Communication/Plan
-
switched to Vanco pending urine cultures
repeat rehab evals today if able
Assessment / Plan
Assessment / Plan
Assessment:
Acute back pain
Reported history of spinal stenosis and spinal arthritis
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
- pain control
- note cannot have NSAIDs due to prior hx of GI bleed
- Also refuses Flexeril due to side effects
- continue lidocaine patches, heat
- s/p 1 dose IV steroids
- PT/OT - currently recommended SNF vs home. Ongoing PT/OT evals
- request spinal ortho evaluation - patient seen by Dr. Senior previously but this doctor is not practicing at any longer.
complicated UTI
Hx of BPH
Hx of Solitary Kidney (L nephrectomy for tumor)
- CT abdomen pelvis with Status post left nephrectomy.3 mm nephrolith in the lower pole of the right kidney. There is diffuse right ureteral and right pelvicaliceal dilation extending to the right ureterovesical junction. There is a small
calcification near the junction of the of the superior prostate and the collapsed bladder, just right lateral to the Macdonald catheter. This would seem to be more medial than expected for a right ureterovesical junction calculus, but could possibly be
a right UVJ calculus, with anatomic distortion due to the collapsed bladder. Other main differential consideration for right ureteral obstruction would be due to the enlarged prostate gland.
- Culture growing Enterococcus; switched to IV Vancomycin (which requires intensive monitoring)
- Urology consulting; [facility] and f/u with [facility]
- continue BPH meds
Ambulatory dysfunction from acute back pain
- PT/OT evals ongoing
Essential HTN
- continue Norvasc, Chlorthalidone, Ramipril
Hx of CAD s/p stents
- continue Plavix
Hx of CVA
- continue Plavix
Neuropathy
- gabapentin continued
Hyperlipidemia
- statin continued
DVT prophylaxis: SCDs
Code: Full
Anticipated Discharge: > 48 hours
Subjective/Interval History
-
Date of Service: April 08, 2024
denies any complaints presently
awaiting repeat PT eval
Objective Data
-
Labs:
Laboratory Results
04/08/24
05:00
WBC 9.3
Hgb 14.0
Hct 41.0
Plt Count 203
Sodium 140
Potassium 4.2
Chloride 103
Carbon Dioxide 29
BUN 50 H
Creatinine 1.3
Glucose 84
Calcium 10.6 H
Vital Signs:
Vital Signs
Temp Pulse Resp BP Pulse Ox
97.6 F 55 16 124/57 98
04/08/24 07:40 04/08/24 07:40 04/08/24 07:40 04/08/24 07:40 04/08/24 07:40
I&O
04/07/24 04/08/24 04/09/24
06:59 06:59 06:59
Intake Total 720 / 720 120 / 120
Output Total 1025 / 1025 525 / 525
Balance -305 / -305 -405 / -405
Physical Exam
-
General: No Apparent Distress
HEENT: Normocephalic and Atraumatic
Respiratory: Negative Wheezes
Cardiac: Regular Rhythm and S1/S2
GI: Soft and Nontender
Neuro: AO x 3
Hematologic / Lymphatic: No Lymphadenopathy
Psych: Calm
Data Reviewed
-
Total Time Spent with Patient (in minutes): 51
Labs: Labs Reviewed by me
[2024-04-08 13:50] VITALS: BP 121/65; PULSE 57
[2024-04-08] MEDS: DECADRON 4 MG IV (15:00)
[2024-04-08 15:35] VITALS: BP 127/70
--- NOTE | 2024-04-08 17:53 | CM ---
Tt from attending that paient will need snf.i met with patient at bedside.he does not want to give me any choices beacuse he wants to go home with home care.i read the thrapy notes . i have placed a call to but no one answered the phone,patient
has agreed to a vn and home pt since he is going home with anderson catheter. plan home with vn vs skilled rehab.
[2024-04-08 18:45] LABS: Hepatitis C Antibody Negative (Negative)
[2024-04-08] MEDS: LIDOCAINE 4% PATCH 1 PATCH TOPICAL (20:07)
[2024-04-08] MEDS: NORVASC 5 MG PO (21:39)
[2024-04-08] MEDS: NEURONTIN 100 MG PO (21:40)
[2024-04-08] MEDS: ALTACE 10 MG PO (21:40)
[2024-04-08 23:53] VITALS: BP 119/79
[2024-04-09 06:26] LABS: Hematocrit 42.4 % (39.0-52.0); Hemoglobin 14.6 g/dL (13.0-18.0); Mean Corp Hgb Conc. 34.4 g/dL (33.0-37.0); Mean Corpuscular Hgb 31.9 pg (27.0-31.0); Mean Corpuscular Volume 92.6 fL (80.0-94.0); Mean Platelet Volume 10.3 fL (7.4-10.4); Platelet Count 209 10^3/uL (130-400); Red Blood Cell Count 4.58 10^6/uL (4.70-6.10); Red Cell Dist. Width 13.4 % (11.5-14.5); White Blood Cell Count 9.5 10^3/uL (4.8-10.8)
[2024-04-09 06:41] LABS: Vancomycin Random 10.1 ug/ml
[2024-04-09 06:51] LABS: Blood Urea Nitrogen 41 mg/dl (9-20); Calcium 10.8 mg/dl (8.4-10.2); Carbon Dioxide 31 mmol/L (22-30); Chloride 101 mmol/L (98-107); Estimated Creatinine Clearance 62 ml/min; Glucose 132 mg/dl (70-99); Potassium 4.7 mmol/L (3.5-5.1); Sodium 140 mmol/L (135-145); eGFR > 60.00
[2024-04-09 07:30] VITALS: BP 144/70
[2024-04-09] MEDS: PROSCAR 5 MG PO (08:21)
[2024-04-09] MEDS: Hygroton 25 MG PO (08:21)
[2024-04-09] MEDS: FLOMAX 0.4 MG PO ×2 (08:21→20:54)
[2024-04-09] MEDS: DECADRON 4 MG IV (08:21)
[2024-04-09] MEDS: DESENEX/MITRAZOL/ZEASORB 1 APPLIC TOPICAL ×2 (08:23→20:53)
--- NOTE | 2024-04-09 08:35 | W.PN.URO.CBU ---
Today's Communication / Plan
-
treat uti
continue anderson and meds
hold plavix for now
Assessment / Plan
-
urinary retention
BPH
bladder stone
UTI
solitary right kidney with hydro secondary to BPH
intermittent hematuria
appears urologically stable
continue proscar and flomax
await ucx final results- treat as indicated
pt is making appointment to f/u with his established urologist
hematuria is not unexpected given large prostate/stone/uti and blood thinners- discussed with med team- his lovenox was already held- will hold plavix for the next 72hrs and observe
Diagnosis
-
Date of Service: April 09, 2024
-
Patient Diagnosis:
urinary retention
massive BPH
bladder stone
solitary kidney
UTI- enterococcus
Subjective
-
pt with continued back pain- but improved
renal function stable
ucx + for enterococcus- on vanc- awaiting final results
with activity and cath pt has had some intermittent hematuria- today pink in back but octavio in tube
Objective
-
Vital Signs
Temp Pulse Resp BP Pulse Ox
97.8 F 63 22 144/70 98
04/09/24 07:30 04/09/24 07:30 04/09/24 07:30 04/09/24 08:21 04/09/24 07:30
Intake and Output
04/08/24 04/09/24 04/10/24
06:59 06:59 06:59
Intake Total 120 / 120
Output Total 525 / 525 1774
Balance -405 / -405 -1774 / -1774
Intake:
Oral fluids 120 / 120
Output:
Urine, Anderson 525 / 525 1774
Laboratory Results
04/09/24 04:53
04/09/24 04:53
Physical Exam
-
General - no acute distress
Abdomen - soft, non-tender
Genitalia - normal- anderson in place
--- NOTE | 2024-04-09 11:32 | W.PN.HOSP.TC ---
Today's Communication/Plan
-
ongoing PT/OT evals
continue IV steroids
IV ampicillin in place of IV vanco
holding Plavix for octavio urine
Assessment / Plan
Assessment / Plan
Assessment:
Acute back pain
Reported history of spinal stenosis and spinal arthritis
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
- pain control
- note cannot have NSAIDs due to prior hx of GI bleed
- Also refuses Flexeril due to side effects
- continue lidocaine patches, heat
- s/p 1 dose IV steroids with improvement, will continue IV steroids today
- PT/OT - currently recommended SNF vs home. Ongoing PT/OT evaluations.
- request spinal ortho evaluation - patient seen by Dr. Senior previously but this doctor is not practicing at any longer. advised family to seek new consultation outpatient
complicated UTI
Hx of BPH
Hx of Solitary Kidney (L nephrectomy for tumor)
- CT abdomen pelvis with Status post left nephrectomy.3 mm nephrolith in the lower pole of the right kidney. There is diffuse right ureteral and right pelvicaliceal dilation extending to the right ureterovesical junction. There is a small
calcification near the junction of the of the superior prostate and the collapsed bladder, just right lateral to the Macdonald catheter. This would seem to be more medial than expected for a right ureterovesical junction calculus, but could possibly be
a right UVJ calculus, with anatomic distortion due to the collapsed bladder. Other main differential consideration for right ureteral obstruction would be due to the enlarged prostate gland.
- Culture growing Enterococcus; switch to IV Ampicillin. TID Amoxil at discharge x 2 total weeks.
- Urology consulting; recommending Macdonald at [facility] and f/u with [facility]
- continue BPH meds
- hematuria - holding Plavix x 3 days per Urology
Ambulatory dysfunction from acute back pain
- PT/OT evals ongoing
Essential HTN
- continue Norvasc, Chlorthalidone, Ramipril
Hx of CAD s/p stents
- holding Plavix x 3 days per Urology
Hx of CVA
- holding Plavix x 3 days per Urology
Neuropathy
- gabapentin continued
Hyperlipidemia
- statin continued
DVT prophylaxis: SCDs
Code: Full
Anticipated Discharge: 24 - 48 hours
Subjective/Interval History
-
Date of Service: April 09, 2024
pain improving with IV steroids, wishes to ambulate today
Macdonald with bloody output; Plavix held
Objective Data
-
Labs:
Laboratory Results
04/09/24
04:53
WBC 9.5
Hgb 14.6
Hct 42.4
Plt Count 209
Sodium 140
Potassium 4.7
Chloride 101
Carbon Dioxide 31 H
BUN 41 H
Creatinine 1.1
Glucose 132 H
Calcium 10.8 H
Vital Signs:
Vital Signs
Temp Pulse Resp BP Pulse Ox
97.8 F 63 22 144/70 95
04/09/24 07:30 04/09/24 07:30 04/09/24 07:30 04/09/24 08:21 04/09/24 08:30
I&O
04/08/24 04/09/24 04/10/24
06:59 06:59 06:59
Intake Total 120 / 120
Output Total 525 / 525 1774 / 1774
Balance -405 / -405 -1774 / -1774
Physical Exam
-
General: No Apparent Distress
HEENT: Normocephalic and Atraumatic
Respiratory: Negative Wheezes
Cardiac: Regular Rhythm and S1/S2
GI: Soft
Genito-urinary: No Costovertebral Tender and Macdonald (with bloody output)
Neuro: AO x 3
Hematologic / Lymphatic: No Lymphadenopathy
Psych: Calm
Data Reviewed
-
Total Time Spent with Patient (in minutes): 41
Labs: Labs Reviewed by me
[2024-04-09] MEDS: AMPICILLIN 108 MG IV ×3 (13:03→23:14)
--- NOTE | 2024-04-09 14:17 | CM ---
Addendum entered by Eleonora Roach 04/09/24 14:52:
2nd IMM provided to Yossi. He is in agreement with discharge and gave verbal consent; his was present and also agreeable to discharge as planning for
Original Note:
CM met with Yossi and his at bedside. Yossi did better in PT today and plan is for discharge to home with home care services. VN chosen for services; referral sent to [facility].
Yossi has an appointment at [facility] (sees Dr. Sol) on 04/13/2024 at 1pm. Pt and thankful for CM assistance in scheduling visit. Anticipate D/C in am.
Plan: Discharge to home with [facility] for PT, OT, and RN.
[2024-04-09 15:25] VITALS: BP 143/79; PULSE 68; O2SAT 97
--- NOTE | 2024-04-09 15:33 | PTCARENOTE ---
pt and educated surrounding anderson care and leg bag both expressed understanding.
--- NOTE | 2024-04-09 15:37 | VNURNOTE ---
Home Health Liaison met with patient and Trudy at bedside to discuss [facility] nurse/therapy, visits, schedule and homebound status. Patient is agreeable and understands that visits at home will be 2-3 x per week to assess and teach medical
management. [facility] brochure provided with contact information. Patient is aware that [facility] will contact them for start of care in 1-2 days after discharge from . Liaison spoke to nurse Aurora, requested anderson leg bag and teaching be provided to
patient and spouse. [facility] referral completed in [facility].
[2024-04-09 15:52] VITALS: BP 143/79
[2024-04-09] MEDS: NORVASC 5 MG PO (20:54)
[2024-04-09] MEDS: ALTACE 10 MG PO (20:54)
[2024-04-09] MEDS: NEURONTIN 100 MG PO (20:54)
[2024-04-09] MEDS: LIPITOR PO (20:58)
[2024-04-09] MEDS: COLACE 100 MG PO (21:44)
[2024-04-09 23:46] VITALS: BP 159/90
[2024-04-10] MEDS: AMPICILLIN 108 MG IV ×2 (05:59→11:27)
[2024-04-10 07:00] VITALS: BP 113/63
[2024-04-10 08:25] LABS: Hematocrit 42.7 % (39.0-52.0); Hemoglobin 14.8 g/dL (13.0-18.0); Mean Corp Hgb Conc. 34.7 g/dL (33.0-37.0); Mean Corpuscular Hgb 32.2 pg (27.0-31.0); Mean Corpuscular Volume 92.8 fL (80.0-94.0); Mean Platelet Volume 10.4 fL (7.4-10.4); Platelet Count 227 10^3/uL (130-400); Red Cell Dist. Width 13.2 % (11.5-14.5); White Blood Cell Count 9.9 10^3/uL (4.8-10.8)
[2024-04-10 08:26] LABS: Blood Urea Nitrogen 38 mg/dl (9-20); Calcium 10.9 mg/dl (8.4-10.2); Carbon Dioxide 30 mmol/L (22-30); Chloride 101 mmol/L (98-107); Estimated Creatinine Clearance 62 ml/min; Glucose 114 mg/dl (70-99); Potassium 3.8 mmol/L (3.5-5.1); Sodium 139 mmol/L (135-145); eGFR > 60.00
[2024-04-10] MEDS: PROSCAR 5 MG PO (08:27)
[2024-04-10] MEDS: FLOMAX 0.4 MG PO (08:27)
[2024-04-10] MEDS: DECADRON 4 MG IV (08:27)
[2024-04-10] MEDS: DESENEX/MITRAZOL/ZEASORB 1 APPLIC TOPICAL (08:30)
--- NOTE | 2024-04-10 09:10 | W.PN.URO.CBU ---
Today's Communication / Plan
-
OK to d/c home w/ Macdonald catheter in place
F/U with urologist @[facility] scheduled Friday 04/13
Hold Plavix until seen by his urologist
Continue tamsulosin + finasteride
PO antibiotic course on d/c for cUTI
D/w Dr. Mckeon.
D/w patient.
Assessment / Plan
-
Urinary retention
Massive BPH
Bladder stone
cUTI
solitary right kidney with hydro secondary to BPH
Intermittent hematuria
Appears urologically stable
Urine clear in tubing w/ Plavix + Xarelto held
Diagnosis
-
Date of Service: April 10, 2024
-
Patient Diagnosis:
Urinary retention
Massive BPH
Bladder stone
Solitary kidney
cUTI => Enterococcus
Subjective
-
Comfortable.
Urine clear in tubing.
Eager to go home.
Objective
-
Vital Signs
Temp Pulse Resp BP Pulse Ox
98.1 F 62 16 113/63 95
04/10/24 07:00 04/10/24 07:00 04/10/24 07:00 04/10/24 07:00 04/10/24 07:00
Intake and Output
04/09/24 04/10/24 04/11/24
06:59 06:59 06:59
Intake Total 720 / 720
Output Total 1774 2800 / 2800
Balance -1774 / -1774 -2079 / -2079
Intake:
Oral fluids 720 / 720
Output:
Urine, Macdonald 1774 2800 / 2800
Laboratory Results
04/10/24 06:27
04/10/24 06:27
Physical Exam
-
General - well developed, well nourished, no acute distress
Abdomen - soft, non-tender, non-distended
Genitalia - normal, Macdonald catheter w/ clear yellow urine in tubing
Skin - warm & dry with no rash
Neuro - AOx3, no motor deficits
Extremities - no clubbing, no cyanosis, no edema
Care Review
Data Reviewed
Discussed with: Hospitalist
Total Time Spent with Patient (in minutes): 30
--- NOTE | 2024-04-10 09:45 | W.PN.HOSP.TC ---
Today's Communication/Plan
-
dc to home/VN
Assessment / Plan
Assessment / Plan
Assessment:
Acute back pain
Reported history of spinal stenosis and spinal arthritis
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
- pain control
- note cannot have NSAIDs due to prior hx of GI bleed
- Also refuses Flexeril due to side effects
- continue lidocaine patches, heat
- s/p 1 dose IV steroids with improvement, will continue steroids taper outpatient
- PT/OT - home/VN setup
- request spinal ortho evaluation - patient seen by Dr. Senior previously but this doctor is not practicing at any longer. advised family to seek new consultation outpatient - pt will look into [facility]
complicated UTI
Hx of BPH
Hx of Solitary Kidney (L nephrectomy for tumor)
- CT abdomen pelvis with Status post left nephrectomy.3 mm nephrolith in the lower pole of the right kidney. There is diffuse right ureteral and right pelvicaliceal dilation extending to the right ureterovesical junction. There is a small
calcification near the junction of the of the superior prostate and the collapsed bladder, just right lateral to the Macdonald catheter. This would seem to be more medial than expected for a right ureterovesical junction calculus, but could possibly be
a right UVJ calculus, with anatomic distortion due to the collapsed bladder. Other main differential consideration for right ureteral obstruction would be due to the enlarged prostate gland.
- Culture growing Enterococcus; discharge on TID Amoxil x 14 days.
- Urology consulting; recommending Macdonald at [facility] and f/u with [facility] 04/13
- continue BPH meds
- hematuria - holding Plavix until cleared by outpatient Urology
Ambulatory dysfunction from acute back pain
- PT/OT - home/VN setup
Essential HTN
- continue Norvasc, Chlorthalidone, Ramipril
Hx of CAD s/p stents
- holding Plavix until cleared by outpatient Urology
Hx of CVA
- holding Plavix until cleared by outpatient Urology
Neuropathy
- gabapentin continued
Hyperlipidemia
- statin continued
DVT prophylaxis: SCDs
Code: Full
More than 30 minutes spent in discharge including
Final examination of the patient
Summarizing hospital stay
Instructions for continuing care to all relevant caregivers
Preparation of discharge records, prescriptions, and referral forms
Total time spent (in minutes): 41
Anticipated Discharge: Today
Subjective/Interval History
-
Date of Service: April 10, 2024
urine appearing to less octavio today
pain much improved
Objective Data
-
Labs:
Laboratory Results
04/10/24
06:27
WBC 9.9
Hgb 14.8
Hct 42.7
Plt Count 227
Sodium 139
Potassium 3.8
Chloride 101
Carbon Dioxide 30
BUN 38 H
Creatinine 1.1
Glucose 114 H
Calcium 10.9 H
Vital Signs:
Vital Signs
Temp Pulse Resp BP Pulse Ox
98.1 F 62 16 113/63 95
04/10/24 07:00 04/10/24 07:00 04/10/24 07:00 04/10/24 07:00 04/10/24 07:00
I&O
04/09/24 04/10/24 04/11/24
06:59 06:59 06:59
Intake Total 720 / 720
Output Total 1774 2800 / 2800
Balance -1774 / -1774 -2079 /
Physical Exam
-
General: No Apparent Distress
HEENT: Normocephalic and Atraumatic
Respiratory: Negative Wheezes
Cardiac: Regular Rhythm and S1/S2
GI: Soft
Genito-urinary: No Costovertebral Tender and Macdonald
Musculoskeletal: No Edema
Neuro: AO x 3
Psych: Calm
Data Reviewed
-
Total Time Spent with Patient (in minutes): 41
Labs: Labs Reviewed by me
--- NOTE | 2024-04-10 10:01 | W.DS.TRANS ---
DC Summary - Medical Staffing Coordinator
-
Discharge Instructions:
Discharge Diagnosis/Procedures Back pain, complicated UTI requiring Macdonald,
hematuria
Diet 2 Gram Sodium,Low Cholesterol
Activity As tolerated
Other Services VN,PT,OT
Instructions:
Stand-Alone Forms:
Changes to Home Medications: Yes
Discharge Medications:
DC Medications w/original date entered in [employer]
acetaminophen 650 mg tablet,extended release 1,300 mg PO BID 04/06/24
amlodipine 5 mg tablet 5 mg PO HS 04/06/24
ascorbic acid (vitamin C) 1,000 mg tablet (Vitamin C) 1,000 mg PO DAILY 04/06/24
chlorthalidone 25 mg tablet 25 mg PO Q48H 04/06/24
cholecalciferol (vitamin D3) 25 mcg (1,000 unit) tablet 25 mcg PO DAILY 04/06/24
clopidogrel 75 mg tablet 75 mg PO DAILY 04/06/24
cyclobenzaprine 10 mg tablet 10 mg PO TIDPRN PRN muscle spasm 04/06/24
finasteride 5 mg tablet 5 mg PO DAILY 04/06/24
gabapentin 100 mg capsule 100 mg PO HS 04/06/24
pitavastatin calcium 2 mg tablet 2 mg PO Q48H@2200 04/06/24
ramipril 10 mg capsule 10 mg PO HS 04/06/24
tamsulosin 0.4 mg capsule 0.4 mg PO BID 04/06/24
amoxicillin 500 mg capsule 1,000 mg (2 x 500 mg) PO TID 12 days #72 caps 04/10/24
prednisone 10 mg tablet 10 mg PO DIRECTED #20 tabs 04/10/24
Home Medication Changes
Plavix held for hematuria with UTI
Pending Results: No
Total time spent discharging patient (in min): 41
--- NOTE | 2024-04-10 12:21 | CM ---
CM met with Yossi to review plans for discharge to home today. Yossi is feeling much better, his back pain is gone and he feels confident returning home. His son will be coming at discharge and will be available to assist with the 3 steps into the
home if Yossi has difficulty.
[facility] is arranged for home health services at discharge. Urology appointment made for [facility] (sees Dr. Sol) on 04/13/2024 at 1pm for anderson removal.
Plan: Discharge to home with [facility]
[2024-04-10 13:23] VITALS: BP 123/69
== END 2024-04-10 14:11 | disposition home health service (06) | DRG 690 ==
LOC: 4 EAST ACU 17:33
PROVIDERS: Physician Assistant; Registered Nurse; ADMITTING PHYSICIAN Internal Medicine; CONSULT PHYSICIAN Specialist; EMERGENCY PHYSICIAN Emergency Medicine; FAMILY PHYSICIAN Family Medicine
DX: N13.6 Pyonephrosis (principal); D68.32 Hemorrhagic disorder due to extrinsic circulating anticoagulants; E11.40 Type 2 diabetes mellitus with diabetic neuropathy, unspecified; I10 Essential (primary) hypertension; B95.2 Enterococcus as the cause of diseases classified elsewhere; N21.0 Calculus in bladder; N40.0 Benign prostatic hyperplasia without lower urinary tract symptoms; G89.29 Other chronic pain; E78.00 Pure hypercholesterolemia, unspecified; I25.10 Atherosclerotic heart disease of native coronary artery without angina pectoris; K57.30 Diverticulosis of large intestine without perforation or abscess without bleeding; K80.20 Calculus of gallbladder without cholecystitis without obstruction; M19.90 Unspecified osteoarthritis, unspecified site; M48.00 Spinal stenosis, site unspecified; M47.9 Spondylosis, unspecified; T45.525A Adverse effect of antithrombotic drugs, initial encounter; Z79.02 Long term (current) use of antithrombotics/antiplatelets; Z79.899 Other long term (current) drug therapy; Z87.19 Personal history of other diseases of the digestive system; Z87.891 Personal history of nicotine dependence; Z86.73 Personal history of transient ischemic attack (TIA), and cerebral infarction without residual deficits; Z85.528 Personal history of other malignant neoplasm of kidney; Z90.5 Acquired absence of kidney; Z95.1 Presence of aortocoronary bypass graft; Z95.5 Presence of coronary angioplasty implant and graft
CPT/HCPCS: 74176; 80048; 80202; 81003; 81015; 85025; 85027; 86803; 87077; 87086; 87186; 96374; 96375; 97116; 97166; 97530; 99285

== ENCOUNTER 2024-04-26 16:15 | Inpatient (IN) | payer MEDICARE, OTHER, SELFPAY ==
[2024-04-22] VITALS (9 sets, daily range): BP systolic 82–151; BP diastolic 60–91; BMI 27.5
[2024-04-22 17:29] LABS: Urine Albumin Negative (Neg - Trace); Urine Bilirubin Negative (Negative); Urine Character Clear (Clear); Urine Color Yellow; Urine Glucose Negative (Negative); Urine Ketone Negative (Negative); Urine Leukocyte Negative (Negative); Urine Nitrite Negative (Negative); Urine Occult Blood Trace (Negative); Urine Urobilinogen Negative (Neg - 1+)
[2024-04-22 19:13] LABS: % Basophils 0.3 % (0-2); % Eosinophils 0.7 % (0-6); % Immature Granulocytes 0.3 % (0-0.5); % Lymphocytes 13.9 % (20.5-51.1); % Monocytes 5.8 % (1.7-9.3); Absolute Eosinophils 0.1 10^3/uL (0-0.7); Absolute Lymphocytes 1.5 10^3/uL (1.2-3.4); Absolute Monocytes 0.6 10^3/uL (0.1-0.6); Absolute Neutrophils 8.6 10^3/uL (1.4-6.5); Hematocrit 41.6 % (39.0-52.0); Hemoglobin 14.1 g/dL (13.0-18.0); Mean Corp Hgb Conc. 33.9 g/dL (33.0-37.0); Mean Corpuscular Hgb 32.7 pg (27.0-31.0); Mean Corpuscular Volume 96.5 fL (80.0-94.0); Mean Platelet Volume 9.8 fL (7.4-10.4); Nucleated Red Blood Cells % 0 % (-); Platelet Count 209 10^3/uL (130-400); Red Blood Cell Count 4.31 10^6/uL (4.70-6.10); Red Cell Dist. Width 13.8 % (11.5-14.5); White Blood Cell Count 10.9 10^3/uL (4.8-10.8)
[2024-04-22 19:26] LABS: ALT (SGPT) 22 U/L (0-50); AST (SGOT) 24 U/L (17-59); Albumin 3.8 g/dl (3.5-5.0); Alkaline Phosphatase 72 U/L (38-126); Blood Urea Nitrogen 45 mg/dl (9-20); Calcium 10.7 mg/dl (8.4-10.2); Carbon Dioxide 30 mmol/L (22-30); Chloride 103 mmol/L (98-107); Estimated Creatinine Clearance 57 ml/min; Glucose 107 mg/dl (70-99); Potassium 4.4 mmol/L (3.5-5.1); Sodium 142 mmol/L (135-145); Total Bilirubin 0.9 mg/dl (0.2-1.3); Total Protein 5.9 g/dl (6.3-8.2); eGFR > 60.00
[2024-04-22 19:34] LABS: NT-proBNP 283 pg/ml
--- NOTE | 2024-04-22 19:42 | ED.GENMED ---
History of Present Illness
General
Chief Complaint: Urinary Symptoms
Source: patient
Exam Limitations: none
Time Seen by Provider: 04/22/24 18:17
Nursing documentation reviewed up to this point in time: agreed with
History of Present Illness
History of Present Illness:
Patient was admitted here on 04/06 for urinary retention and back pain. Macdonald catheter was placed during admission and removed by urololgy 1 week ago. Continues on po antibiotic, has 2 doses left. States no further urinary symptoms until today
when urinary retention returned. He also notes extreme weakness. Noticed weakness during admission but wanted to be discharged home. Has PT coming to home but he does not note any improvement. Unable to ambulate without max assistance. States
his is unable to help him. He feels that he needs to go to rehab. states she is unable to care for him at home.
Past History
Past History
ED Past Medical History: CAD, HTN, Hypercholesterolemia, NIDDM and Other (enlarged prostate)
Review of Systems
Review of Systems
Allergies reviewed?: Yes
All Other Systems: ROS reviewed and negative except as documented in HPI and ROS
Constitutional: Reports fatigue
EENT: Reports no symptoms
Respiratory: Reports no symptoms
Cardiac: Reports no symptoms
ABD/GI: Reports no symptoms
: Reports difficulty voiding
Musculoskeletal: Reports edema (+3 edema BLE)
Skin: Reports no symptoms
Neurological: Reports weakness
Psychiatric: Reports no symptoms
Phy Exam
General Physical Exam
General Presentation: moderate distress
General age: appears stated age
General Skin: warm and dry
General Habitus: normal
General Mental: alert
Cardiovascular Exam
Cardiovascular Exam: regular rate/rhythm
Pulmonary Exam
Pulmonary Exam: lungs clear and no respiratory distress
Gastrointestinal Exam
Gastrointestinal Exam: normal bowel sounds, non tender, soft and no organomegaly
Musculoskeletal Exam
Musculoskeletal Exam: full ROM and edema (+3 edema BLE)
Skin Exam
Skin Exam: normal color, warm/dry and no rash
Psychiatric Exam
Psychiatric Exam: normal mood/affect
Course
Orders/Labs/Results
Orders:
Orders
04/22/24 Breakfast
Cholesterol Lowering
At Your Request: Full Participation
Does patient need a safe tray?: No
Cholesterol Lowering: Sodium, 2 Gram
04/22/24 17:09
Urinalysis Reflex To Culture Urgent
Date Specimen was Collected: 04/22/24
Time Specimen was Collected: 16:59
Urine Microscopic Reflex Cult Urgent
04/22/24 18:45
Renal & Bladder US [US Renal With Bladder] Urgent
Comment:
Reason For Exam: retention
04/22/24 19:05
Complete Blood Count/With Diff Urgent
Comprehensive Metabolic Panel Urgent
NT-proBNP Urgent
04/22/24 20:56
Admit/Transfer Patient As Directed
Co-Sign Provider:
Level of Care: Observation services
Assign to:: Medical/Surgical
Physician / Group: alek
Diagnosis: urinary retenion
PRN Pain Medication Management As Directed
May give lesser potent ordered pain med per pt: Yes
preference::
Protocol:: Medication orders for pain may be administered in a
manner that supports deferring to patient preference
when the pt is:
- Requesting an ordered lesser potent pain medication.
Least to most potent pain medications are defined
as: acetaminophen < NSAID < tramadol < opioids
(morphine, oxycodone, hydromorphone).
- Requesting a lesser dose of the same medication IF
ORDERED.
- Requesting a less intrusive route of administration
if both routes are prescribed by the provider (PO <
IV).
04/22/24 20:58
Code Status As Directed
Resuscitation Status: Full Code
04/22/24 21:00
Flush (0.9% Sodium Chloride) [Flush (Nss)] See Dose Instructions IV PER PROTOCOL
04/22/24 22:45
Acetaminophen [Tylenol] 650 mg PO Q4HPRN PRN
Amlodipine [Norvasc] 5 mg PO HS
Amoxicillin [Amoxil] 1,000 mg PO TID
Bisacodyl [Dulcolax] 10 mg RECTAL Z38IMTM PRN
Docusate W/Senna [Senokot-S] 1 tablet PO BIDPRN PRN
Gabapentin [Neurontin] 100 mg PO HS
Polyethylene Glycol Powder [Miralax] 17 grams PO DAILYPRN PRN
Ramipril [Altace] 10 mg PO HS
Tamsulosin [Flomax] 0.4 mg PO BID
04/22/24 22:45
Activity As Directed
Activity Level: As Tolerated
Vital Signs As Directed
Frequency: Per unit guidelines
DX Deep Vein Thrombosis Video Routine
04/23/24 06:00
Basic Metabolic Panel IN AM
Complete Blood Count/No Diff IN AM
Occupational Therapy Consult [Ot Eval And Treat] IN AM
Physical Therapy Consult [Pt Eval And Treat] IN AM
Activity Level: As Tolerated
04/23/24 08:00
Chlorthalidone [Hygroton] 25 mg PO Q48H
Clopidogrel Bisulfate [Plavix] 75 mg PO DAILY
Finasteride [Proscar] 5 mg PO DAILY
Heparin 5,000 units SC Q12
04/24/24 06:00
Basic Metabolic Panel IN AM
Complete Blood Count/No Diff IN AM
04/24/24 08:00
Atorvastatin [Lipitor] 10 mg PO Q48H
04/25/24 06:00
Basic Metabolic Panel IN AM
Complete Blood Count/No Diff IN AM
04/26/24 06:00
Basic Metabolic Panel IN AM
Complete Blood Count/No Diff IN AM
04/27/24 06:00
Basic Metabolic Panel IN AM
Complete Blood Count/No Diff IN AM
Abnormal Lab Results
04/22/24 04/22/24
17:09 19:05
WBC 10.9 H 10^3/uL
(4.8-10.8)
RBC 4.31 L 10^6/uL
(4.70-6.10)
MCV 96.5 H fL
(80.0-94.0)
MCH 32.7 H pg
(27.0-31.0)
Absolute Neuts (auto) 8.6 H 10^3/uL
(1.4-6.5)
Neutrophils % 79.0 H %
(42.2-75.2)
Lymphocytes % 13.9 L %
(20.5-51.1)
BUN 45 H mg/dl
(9-20)
Glucose 107 H mg/dl
(70-99)
Calcium 10.7 H mg/dl
(8.4-10.2)
Total Protein 5.9 L g/dl
(6.3-8.2)
Ur Occult Blood Reflex Trace A
(Negative)
Urine RBC 3-6 A /HPF
(0-2)
04/22/24 19:05
04/22/24 19:05
Vital Signs
Initial and Last Documented VS:
Initial Vital Signs
Temp Pulse Resp BP Pulse Ox
97.9 F 87 16 138/74 96
04/22/24 16:56 04/22/24 16:56 04/22/24 16:56 04/22/24 16:56 04/22/24 16:56
Last Documented Vital Signs
Temp Pulse Resp BP Pulse Ox
98.1 F 85 20 151/81 97
04/22/24 23:07 04/22/24 23:07 04/22/24 23:07 04/22/24 23:07 04/22/24 23:07
*Radiology
Radiology exam reviewed: radiology read reviewed
*Pulse Oximetry
Patient hypoxic: no
*Critical Care Note
Total Time (30-74mins, 75-104mins- exclusive of procedures): Not Applicable
Update Note
Update Note:
Patient to ED for complaint of urinary retention. Macdonald placed, drained immediate 800cc, UA obtained. He continues on amoxicillin for prior UTI. 2 doses left in course. No evidence of re-infection. Patient complains of worsening weakness. First
noted during admission 2 weeks ago, does not feel it is safe to bring him home. He is requiring max assist with transfers, requires assistance with all ADL's. WIll admit tonight. Case management consult in AM
ED Attending Note
-
Portions of this chart may have been created with voice recognition software.� Occasional wrong word or��sound alike� substitutions may have occurred due to the inherent limitations of voice recognition software.
Discharge Plan
Departure
Patient Disposition: Admit
Date of Disposition: 04/22/24
Time of Disposition: 20:23
Presentation/result/management discussed w/ accepting MD/DO: Hospitalist
Patient with high blood pressure during this ER visit?: No
Condition: Fair
Covid-19: Not Applicable
Discharge Problem:
Acute urinary retention, Weakness
Interventions
Interventions:
*Risk Screen - Suicide Last Done: 04/22/24 16:54
*General Assessment Last Done: 04/22/24 16:54
*Neglect/Abuse Screening Last Done: 04/22/24 16:54
ED- Fall Risk Assessment Last Done: 04/22/24 22:41
*ED COVID-19 Vaccine History Last Done: 04/22/24 16:54
*Nursing Disposition Last Done: 04/22/24 22:41
ED-Male Genitourinary Assessment Last Done: 04/22/24 16:54
Discharge Date and Time
Discharge Date/Time: 04/22/24 22:42
--- NOTE | 2024-04-22 20:30 | HPS.HSE ---
Family Physician
-
Family Physician: Farhad Booker
Chief Complaint
-
urinary retention
generalized weakness
History of Present Illness
78 year old with PMH for CAD, UTI, urinary retention, CAD, CVA, HLD presented to us with unable to void since last night. his Macdonald cath was removed on 04/13. he was voiding without any difficulty until yesterday. since the discharge from here, he
was sleeping on the chair with his feet dangled down. he was noted to have left LE edema, which was wrapped by PT nurse today. he has chronic right LE edema. he slept on the chair, as he was afraid of fall when he gets up from bed. patient stated
very weak to walk and need help with activities of daily living. denied fever, chills, SETHI, dizzy o r syncopal episode. denied chest pain, sob. denied abdominal pain,n,v,d.
patient was admitted here on 04/06 for urinary retention and back pain. Macdonald catheter was placed during admission
upon arrival noted urinary retention. Macdonald placed. admitting for further management.
Medical History
Past Medical History
Past Medical History: Reports Other
Additional Past Medical History:
DM
HTN
Hyperlipidemia
CVA
Past Surgical History: Reports Other
Additional Past Surgical History:
removal of left kidney
cervical fusion
bypass sugery
Social History
Tobacco: Non-smoker
Alcohol: None
Drug: None
Personal:
Living: With Family
Family History
Family History: Not pertinent
Allergies / Home Medications
Allergies reflects when Allergies were last updated in [facility].
Home Medications with original date entered in [facility]
Allergy/Medication List:
Allergies
Allergy/AdvReac Type Severity Reaction Status Date / Time
No Known Allergies Allergy Verified 04/06/24 12:15
Home Medications
acetaminophen 650 mg tablet,extended release 1,300 mg PO BID 04/06/24
amlodipine 5 mg tablet 5 mg PO HS 04/06/24
ascorbic acid (vitamin C) 1,000 mg tablet (Vitamin C) 1,000 mg PO DAILY 04/06/24
chlorthalidone 25 mg tablet 25 mg PO Q48H 04/06/24
cholecalciferol (vitamin D3) 25 mcg (1,000 unit) tablet 25 mcg PO DAILY 04/06/24
clopidogrel 75 mg tablet 75 mg PO DAILY 04/06/24
finasteride 5 mg tablet 5 mg PO DAILY 04/06/24
gabapentin 100 mg capsule 100 mg PO HS 04/06/24
pitavastatin calcium 2 mg tablet 2 mg PO Q48H 04/06/24
ramipril 10 mg capsule 10 mg PO HS 04/06/24
tamsulosin 0.4 mg capsule 0.4 mg PO BID 04/06/24
amoxicillin 500 mg capsule 1,000 mg (2 x 500 mg) PO TID 12 days #72 caps 04/10/24
acetaminophen 650 mg tablet,extended release 1,300 mg PO DAILYPRN PRN mild pain 04/22/24
Review of Systems
-
Constitutional: Reports No Symptoms
EENT: Reports No Symptoms
Respiratory: Reports No Symptoms
Cardiac: Reports No Symptoms
Abdomen/GI: Reports No Symptoms
: Reports Difficulty Voiding
Musculoskeletal: Reports Edema (left LE edema)
Skin: Reports No Symptoms
Neurological: Reports Weakness
Endocrine: Reports No Symptoms
Hematologic/Lymphatic: Reports No Symptoms
Psych: Reports No Symptoms
Physical Exam
Vital Signs
Vital Signs
Temp Pulse Resp BP Pulse Ox
97.9 F 88 13 125/91 96
04/22/24 16:56 04/22/24 20:17 04/22/24 20:17 04/22/24 20:17 04/22/24 20:17
Physical Exam
General: Well Developed, Well Nourished and No Apparent Distress
HEENT: NormoCephalic, Moist mucous membranes and Atraumatic
Respiratory: Clear
Cardiac: S1/S2 and Regular Rhythm; No Murmur or Rub
GI: Soft, Non Tender, Non Distended and Normal Bowel Sounds; No Organomegaly
Rectal: Deferred by Provider
Musculoskeletal: No Clubbing, No Cyanosis, No Edema and Other (b/l LE edema)
Skin: No Rash
Neuro: AO x 3 and Nonfocal/grossly intact
Psych: Calm
Laboratory Results
-
04/22/24 19:05
04/22/24 19:05
Laboratory Results
Total Bilirubin 0.9 mg/dl (0.2-1.3) 04/22/24 19:05
AST 24 U/L (17-59) 04/22/24 19:05
ALT 22 U/L (0-50) 04/22/24 19:05
Alkaline Phosphatase 72 U/L (38-126) 04/22/24 19:05
Data Reviewed
-
Lab Data: Labs Reviewed by me
Impression/Plan
-
# Urinary retention/history of UTI/chronic outlet obstruction/neurogenic bladder
-Ultrasound renal with bladder with impression of Moderate right hydronephrosis without an obstructing cause identified sonographically. Findings suggesting chronic outlet obstruction changes and/or neurogenic bladder. Absent left kidney.
-Macdonald placed
-gave last dose of amoxicillin tonight
-UA clear
-ctm
# Generalized weakness/deconditioning
-PT/OT consult
#Essential HTN
- continue Norvasc, Chlorthalidone, Ramipril with hold parameter
#Hx of CAD s/p stents
- Plavix continued
#Hx of CVA
-with right sided weakness
#Neuropathy
- gabapentin continued
#Hyperlipidemia
- statin continued
#DVT prophylaxis: SCDs
#Code: Full
--- NOTE | 2024-04-22 21:01 | W.PN.UPDATE ---
Update Note
Progress Note Update
Patient seen in conjunction with CHEF CONCIERGE, I agree with findings on history and physical and agree with the plan as stated.
Briefly this is a 78-year-old with past medical history of CAD, hypertension, diabetes, hyperlipidemia, solitary kidney, BPH who presents to the emergency department with recurrent urinary retention.
Patient was initially admitted and discharged about a week ago with urinary symptoms. At that time was taking Flexeril and was found to have acute urinary retention with possible urinary tract infection. He was treated with vancomycin and then
discharged on amoxicillin. He did see his urologist and had a voiding trial which he passed. Patient felt well for about 4 days after the voiding trial and then started having symptoms again. He was to having urinary frequency as well as
increased stooling likely secondary to the antibiotic. He started having abdominal bloating and some nausea and came back to the emergency department because it was reminiscent of his prior retention. He also reports feeling weak and having
difficulty with ambulation. He denies lightheadedness or dizziness. He reports bilateral lower extremity swelling.
In the ED he was afebrile, normotensive in no acute distress. His CBC was unremarkable. Chemistries were within normal limits. UA was negative for leukocyte esterase or WBCs did show some RBCs. Renal ultrasound shows moderate right
hydronephrosis without an obstructive stone. Urinary catheter was placed with a large amount of urine excreted which was clear-colored.
On my examination the patient has no focal neurological deficits but does have 2+ bilateral pitting edema in the lower extremities. Cardiac exam was unremarkable. Abdominal exam was unremarkable.
Plan
Recurrent acute urinary retention -
- urinary catheter placed, will go home on this
- continue flomax and finesteride
- outpatient urology
- u/a is negative for infection
Ambulatory dysfunction
- ptot
- care management
Pedal Edema - No other signs of heart failure, suspect secondary to acute retention
- low salt diet and fluid restriction
- continue urinary catheter
- continue clorthalidone
- serial examinations
DVT PPX - lovenox sq
Code Status - Full
--- NOTE | 2024-04-22 23:07 | PTCARENOTE ---
Pt arrived from ED via stretcher with a Macdonald in place and pulled over to the bed. Pt is AAOx3, VSS, and w/o complaints of pain. Pt is resting comfortably w/ call white within reach.
[2024-04-22] MEDS: NEURONTIN 100 MG PO (23:50)
[2024-04-22] MEDS: ALTACE 10 MG PO (23:50)
[2024-04-22] MEDS: FLOMAX 0.4 MG PO (23:50)
[2024-04-22] MEDS: NORVASC 5 MG PO (23:50)
[2024-04-23] MEDS: TYLENOL 650 MG PO ×2 (06:15→16:38)
[2024-04-23 07:41] LABS: Hematocrit 40.1 % (39.0-52.0); Hemoglobin 13.8 g/dL (13.0-18.0); Mean Corp Hgb Conc. 34.4 g/dL (33.0-37.0); Mean Corpuscular Hgb 32.5 pg (27.0-31.0); Mean Corpuscular Volume 94.6 fL (80.0-94.0); Mean Platelet Volume 10.3 fL (7.4-10.4); Platelet Count 202 10^3/uL (130-400); Red Blood Cell Count 4.24 10^6/uL (4.70-6.10); Red Cell Dist. Width 13.9 % (11.5-14.5); White Blood Cell Count 9.1 10^3/uL (4.8-10.8)
[2024-04-23 07:52] VITALS: BP 104/62
[2024-04-23] MEDS: PROSCAR 5 MG PO (07:58)
[2024-04-23] MEDS: PLAVIX 75 MG PO (07:58)
[2024-04-23] MEDS: FLOMAX 0.4 MG PO ×2 (07:58→21:42)
[2024-04-23] MEDS: HEPARIN 5000 UNITS SC ×2 (07:58→21:42)
[2024-04-23] MEDS: DESENEX/MITRAZOL/ZEASORB 1 APPLIC TOPICAL ×2 (08:03→21:45)
[2024-04-23] MEDS: Hygroton PO (08:05)
[2024-04-23 08:18] LABS: Blood Urea Nitrogen 33 mg/dl (9-20); Calcium 10.3 mg/dl (8.4-10.2); Carbon Dioxide 29 mmol/L (22-30); Chloride 105 mmol/L (98-107); Estimated Creatinine Clearance 68 ml/min; Glucose 79 mg/dl (70-99); Potassium 3.6 mmol/L (3.5-5.1); Sodium 142 mmol/L (135-145); eGFR > 60.00
--- NOTE | 2024-04-23 09:00 | VNURNOTE ---
Chart reviewed. Patient is [facility] and [facility]. Currently in OBS status. Will continue to follow hospital course.
[2024-04-23 12:58] VITALS: BP 149/81; PULSE 78; O2SAT 96
--- NOTE | 2024-04-23 13:37 | W.PN.HOSP.TC ---
Today's Communication/Plan
-
anderson in place, draining well
pt/ot - dc ready - cm aware
Assessment / Plan
Assessment / Plan
Physical Exam
General: Well Developed, Well Nourished and No Apparent Distress
HEENT: NormoCephalic, Moist mucous membranes and Atraumatic
Respiratory: Clear
Cardiac: S1/S2 and Regular Rhythm; No Murmur or Rub
GI: Soft, Non Tender, Non Distended and Normal Bowel Sounds; No Organomegaly
Rectal: Deferred by Provider
Musculoskeletal: No Clubbing, No Cyanosis, No Edema and Other (b/l LE edema)
Skin: No Rash
Neuro: AO x 3 and Nonfocal/grossly intact
Psych: Calm
-
# Urinary retention/history of UTI/chronic outlet obstruction/neurogenic bladder
#Moderate right hydronephrosis without obstructing cause except for prostate
-Ultrasound renal with bladder with impression of Moderate right hydronephrosis without an obstructing cause identified sonographically. Findings suggesting chronic outlet obstruction changes and/or neurogenic bladder. Absent left kidney.
-Anderson placed - will continue upon dc
-F/u Urology outpatient
-gave last dose of amoxicillin tonight
-UA clear
-ctm
-Continue tamsulosin, finasteride
# Generalized weakness/deconditioning
-PT/OT consult - will need SNF/Rehab
-attribute to abx course with diarrhea and prolonged immobility
-no metabolic issues found at this time
#Essential HTN
- continue Norvasc, Chlorthalidone, Ramipril with hold parameter
#Hx of CAD s/p stents
- Plavix continued
#Hx of CVA
-with right sided weakness
#Neuropathy
- gabapentin continued
#Hyperlipidemia
- statin continued
#DVT prophylaxis: HSQ
Anticipated Discharge: Within 24 hours
Subjective/Interval History
-
Date of Service: April 23, 2024
No acute events, Anderson draining well
Objective Data
-
Labs:
Laboratory Results
04/23/24
06:05
WBC 9.1
Hgb 13.8
Hct 40.1
Plt Count 202
Sodium 142
Potassium 3.6
Chloride 105
Carbon Dioxide 29
BUN 33 H
Creatinine 1.0
Glucose 79
Calcium 10.3 H
Vital Signs:
Vital Signs
Temp Pulse Resp BP Pulse Ox
97.5 F 65 18 104/62 98
04/23/24 07:52 04/23/24 08:05 04/23/24 07:52 04/23/24 08:05 04/23/24 08:00
I&O
04/22/24 04/23/24 04/24/24
06:59 06:59 06:59
Intake Total 480 / 480
Output Total 2600 / 2600
Balance -0 / -2120
Review of Systems
-
History Source: Patient
All other systems: Not reviewed unless documented
Data Reviewed
-
Total Time Spent with Patient (in minutes): 41
Ultrasound: Report Reviewed by me
Labs: Labs Reviewed by me
[2024-04-23 16:24] VITALS: BP 141/81
--- NOTE | 2024-04-23 17:28 | CM ---
Alert awake oriented patient who lives with his Trudy who lives in a 1 story home with 4 step to ente. He is assisted in all activities of daily living.He is observation. PT OT leon say needs acute rehab . [facility] evaluated evals and pt
does not qualifying dx.Pt wants SNF . MICHAEL letter given explained. Copy on chart pt did not sign. Spoke with [facility] . PT is not on waver program. As per pt he may needs surgery.
DH VN hx / [facility] and [facility] history
Pharmacy [facility]
PCP DR Migdalia Booker
PLAN DC plan ongoing
[2024-04-23] MEDS: ALTACE 10 MG PO (21:41)
[2024-04-23] MEDS: NEURONTIN 100 MG PO (21:41)
[2024-04-23] MEDS: NORVASC 5 MG PO (21:42)
[2024-04-23 23:00] VITALS: BP 139/75
[2024-04-24 03:00] VITALS: BP 128/65
[2024-04-24] MEDS: TYLENOL 650 MG PO (03:54)
--- NOTE | 2024-04-24 06:28 | PTCARENOTE ---
ax3 - anderson drained clear yellow bp wnl afebrile- Tylenol given for generalized body aches
[2024-04-24 07:00] VITALS: BP 126/65
[2024-04-24 07:43] LABS: Hematocrit 39.9 % (39.0-52.0); Hemoglobin 13.9 g/dL (13.0-18.0); Mean Corp Hgb Conc. 34.8 g/dL (33.0-37.0); Mean Corpuscular Volume 94.8 fL (80.0-94.0); Platelet Count 178 10^3/uL (130-400); Red Blood Cell Count 4.21 10^6/uL (4.70-6.10); Red Cell Dist. Width 13.7 % (11.5-14.5); White Blood Cell Count 9.4 10^3/uL (4.8-10.8)
[2024-04-24] MEDS: HEPARIN 5000 UNITS SC ×2 (07:45→19:31)
[2024-04-24] MEDS: FLOMAX 0.4 MG PO ×2 (07:45→19:30)
[2024-04-24] MEDS: PLAVIX 75 MG PO (07:45)
[2024-04-24] MEDS: PROSCAR 5 MG PO (07:45)
[2024-04-24] MEDS: DESENEX/MITRAZOL/ZEASORB 1 APPLIC TOPICAL ×2 (07:47→19:34)
[2024-04-24 08:00] LABS: Blood Urea Nitrogen 25 mg/dl (9-20); Calcium 10.5 mg/dl (8.4-10.2); Carbon Dioxide 28 mmol/L (22-30); Chloride 105 mmol/L (98-107); Estimated Creatinine Clearance 68 ml/min; Glucose 84 mg/dl (70-99); Potassium 3.7 mmol/L (3.5-5.1); Sodium 140 mmol/L (135-145); eGFR > 60.00
--- NOTE | 2024-04-24 11:11 | CM ---
CM following for discharge plans. Yossi has most recently been using a w/c in the home. [facility] referral submitted, however [facility] will not consider, as he does not meet criteria for IP acute rehab stay. Pt has Traditional Medicare coverage
and had a 3 day IP stay 04/06-04/10/2024.
Plan: CM to speak with patient and to discuss SNF transfer.
--- NOTE | 2024-04-24 12:32 | W.PN.HOSP.TC ---
Today's Communication/Plan
-
anderson
dc planning - cm aware
Assessment / Plan
Assessment / Plan
Physical Exam
General: Well Developed, Well Nourished and No Apparent Distress
HEENT: NormoCephalic, Moist mucous membranes and Atraumatic
Respiratory: Clear
Cardiac: S1/S2 and Regular Rhythm; No Murmur or Rub
GI: Soft, Non Tender, Non Distended and Normal Bowel Sounds; No Organomegaly
�Anderson in place, draining clear yellow urine
Rectal: Deferred by Provider
Musculoskeletal: No Clubbing, No Cyanosis, No Edema
Skin: No Rash
Neuro: AO x 3 and Nonfocal/grossly intact
Psych: Calm
# Urinary retention/history of UTI/chronic outlet obstruction/neurogenic bladder
#Moderate right hydronephrosis without obstructing cause except for prostate
-Ultrasound renal with bladder with impression of Moderate right hydronephrosis without an obstructing cause identified sonographically. Findings suggesting chronic outlet obstruction changes and/or neurogenic bladder. Absent left kidney.
-Anderson placed - will continue upon dc
-F/u Urology outpatient
-gave last dose of amoxicillin tonight
-UA clear
-ctm
-Continue tamsulosin, finasteride
# Generalized weakness/deconditioning
-PT/OT consult - will need SNF/Rehab
-attribute to abx course with diarrhea and prolonged immobility
-no metabolic issues found at this time
#Essential HTN
- continue Norvasc, Chlorthalidone, Ramipril with hold parameter
#Hx of CAD s/p stents
- Plavix continued
#Hx of CVA
-with right sided weakness
#Neuropathy
- gabapentin continued
#Hyperlipidemia
- statin continued
#DVT prophylaxis: HSQ
Anticipated Discharge: 24 - 48 hours
Subjective/Interval History
-
Date of Service: April 24, 2024
No acute events overnight
Objective Data
-
Labs:
Laboratory Results
04/24/24
07:04
WBC 9.4
Hgb 13.9
Hct 39.9
Plt Count 178
Sodium 140
Potassium 3.7
Chloride 105
Carbon Dioxide 28
BUN 25 H
Creatinine 1.0
Glucose 84
Calcium 10.5 H
Vital Signs:
Vital Signs
Temp Pulse Resp BP Pulse Ox
98.1 F 70 16 126/65 94
04/24/24 07:00 04/24/24 07:00 04/24/24 07:00 04/24/24 07:00 04/24/24 07:00
I&O
04/23/24 04/24/24 04/25/24
06:59 06:59 06:59
Intake Total 480 / 480 720 / 720
Output Total 2600 / 2600 2650 / 2650
Balance -0 / -0 -1929 / -1929
Review of Systems
-
History Source: Patient
All other systems: Not reviewed unless documented
Data Reviewed
-
Total Time Spent with Patient (in minutes): 41
Ultrasound: Report Reviewed by me
Labs: Labs Reviewed by me
--- NOTE | 2024-04-24 14:43 | CM ---
CM met with Yossi and his this afternoon. At last admission (04/06-04/10/2024) he insisted on returning home with home care services. There were concerns about how he would manage, but was insistent on returning home.
Yossi lives with his in a 2 story home with 3 entry steps. Yossi is nervous about the entry steps.
He stays on the first floor where he has his bed (with rails) and bathroom. Yossi has a cane, RW and w/c at home,
He has 3 entry steps from his garage which are the only way he can get into the house.
This admission he has lost his strength and the gains that he had made previously have been lost. He is now willing to go to SNF; referrals sent via [facility]. [facility] is the preference due to reputation and proximity to home. Per Amanda,
market analysis director, she will call if/when a bed becomes available. Nothing available today. [facility] is also close to home and would be the second choice for facility.
Plan: Discharge to SNF when bed available.
PCP: Farhad Booker
Pharmacy: [facility] on [address] in [place]
[2024-04-24 15:00] VITALS: BP 128/65
[2024-04-24] MEDS: NON-FORMULARY ITEM 1 UNIT PO (18:16)
[2024-04-24] MEDS: ALTACE 10 MG PO (19:30)
[2024-04-24] MEDS: NEURONTIN 100 MG PO (19:31)
[2024-04-24] MEDS: NORVASC 5 MG PO (19:31)
[2024-04-24 23:00] VITALS: BP 124/74
[2024-04-25] MEDS: TYLENOL 650 MG PO (05:38)
[2024-04-25 07:10] VITALS: BP 134/79
[2024-04-25] MEDS: Hygroton 25 MG PO (07:40)
[2024-04-25] MEDS: PLAVIX 75 MG PO (07:40)
[2024-04-25] MEDS: FLOMAX 0.4 MG PO ×2 (07:40→20:29)
[2024-04-25] MEDS: HEPARIN 5000 UNITS SC ×2 (07:40→20:29)
[2024-04-25] MEDS: PROSCAR 5 MG PO (07:40)
[2024-04-25] MEDS: DESENEX/MITRAZOL/ZEASORB 1 APPLIC TOPICAL ×2 (07:43→20:29)
[2024-04-25] MEDS: MIRALAX 17 GRAMS PO (07:56)
--- NOTE | 2024-04-25 11:46 | W.PN.HOSP.TC ---
Today's Communication/Plan
-
anderson
dc planning - cm aware
Assessment / Plan
Assessment / Plan
Physical Exam
General: Well Developed, Well Nourished and No Apparent Distress
HEENT: NormoCephalic, Moist mucous membranes and Atraumatic
Respiratory: Clear
Cardiac: S1/S2 and Regular Rhythm; No Murmur or Rub
GI: Soft, Non Tender, Non Distended and Normal Bowel Sounds; No Organomegaly
�Anderson in place, draining clear yellow urine
Rectal: Deferred by Provider
Musculoskeletal: No Clubbing, No Cyanosis, No Edema
Skin: No Rash
Neuro: AO x 3 and Nonfocal/grossly intact
Psych: Calm
# Urinary retention/history of UTI/chronic outlet obstruction/neurogenic bladder
#Moderate right hydronephrosis without obstructing cause except for prostate
-Ultrasound renal with bladder with impression of Moderate right hydronephrosis without an obstructing cause identified sonographically. Findings suggesting chronic outlet obstruction changes and/or neurogenic bladder. Absent left kidney.
-Anderson placed -trending well will continue upon dc
-F/u Urology outpatient
-gave last dose of amoxicillin tonight
-UA clear
-ctm
-Continue tamsulosin, finasteride
# Generalized weakness/deconditioning
-PT/OT consult - will need SNF
-attribute to abx course with diarrhea and prolonged immobility
-no metabolic issues found at this time
#Essential HTN
- continue Norvasc, Chlorthalidone, Ramipril with hold parameter
#Hx of CAD s/p stents
- Plavix continued
#Hx of CVA
-with right sided weakness
#Neuropathy
- gabapentin continued
#Hyperlipidemia
- statin continued
#DVT prophylaxis: HSQ
Anticipated Discharge: Within 24 hours
Subjective/Interval History
-
Date of Service: April 25, 2024
No acute events overnight
Objective Data
-
Vital Signs:
Vital Signs
Temp Pulse Resp BP Pulse Ox
98 F 70 20 134/79 98
04/25/24 07:10 04/25/24 07:10 04/25/24 07:10 04/25/24 07:10 04/25/24 07:10
I&O
04/24/24 04/25/24 04/26/24
06:59 06:59 06:59
Intake Total 720 / 720 480 / 480
Output Total 2650 / 2650 2175 / 2175
Balance -1930 / -1930 -1694 / -1694
Review of Systems
-
History Source: Patient
All other systems: Not reviewed unless documented
Data Reviewed
-
Total Time Spent with Patient (in minutes): 41
Ultrasound: Report Reviewed by me
Labs: Labs Reviewed by me
[2024-04-25] MEDS: SENOKOT-S 1 TABLET PO (15:29)
[2024-04-25 15:31] VITALS: BP 112/73
[2024-04-25] MEDS: NEURONTIN 100 MG PO (20:28)
[2024-04-25] MEDS: NORVASC 5 MG PO (20:28)
[2024-04-25] MEDS: ALTACE 10 MG PO (20:29)
[2024-04-25 23:12] VITALS: BP 145/78
[2024-04-26] MEDS: TYLENOL 650 MG PO ×2 (04:12→15:44)
[2024-04-26] MEDS: DULCOLAX 10 MG RECTAL (04:14)
[2024-04-26 07:00] VITALS: BP 128/70
--- NOTE | 2024-04-26 08:02 | W.PN.HOSP.TC ---
Today's Communication/Plan
-
PT/OT
discharge planning SNF rehab
Assessment / Plan
Assessment / Plan
Physical Exam
General: Well Developed, Well Nourished and No Apparent Distress
HEENT: NormoCephalic, Moist mucous membranes and Atraumatic
Respiratory: Clear
Cardiac: S1/S2 and Regular Rhythm; No Murmur or Rub
GI: Soft, Non Tender, Non Distended and Normal Bowel Sounds; No Organomegaly
�Macdonald in place, draining clear yellow urine
Musculoskeletal: No Clubbing, No Cyanosis, No Edema
Skin: No Rash
Neuro: AO x 3 and Nonfocal/grossly intact
Psych: Calm
# Urinary retention/history of UTI/chronic outlet obstruction/neurogenic bladder
#Moderate right hydronephrosis without obstructing cause except for prostate
-Ultrasound renal with bladder with impression of Moderate right hydronephrosis without an obstructing cause identified sonographically. Findings suggesting chronic outlet obstruction changes and/or neurogenic bladder. Absent left kidney.
-Macdonald placed outpt F/u Urology recommended.
-completed abx treatment
-UA clear
-ctm
-Continue tamsulosin, finasteride
# Generalized weakness/deconditioning
-PT/OT consult appreciated SNF rehab
-attribute to abx course with diarrhea and prolonged immobility
#Essential HTN
- continue Norvasc, Chlorthalidone, Ramipril with hold parameter
#Hx of CAD s/p stents
- Plavix continued
#Hx of CVA
-with right sided weakness
#Neuropathy
- gabapentin continued
#Hyperlipidemia
- statin continued
#Chronic Mild Hypercalcemia
known to patient, present for years
continue follow up with primary care provider
#DVT prophylaxis: HSQ
Medically stable for discharge pending SNF placement
discussed with patient, patient's Trudy, nurse, and nurse case manager.
I spent a total of 40 minutes with the patient or on the floor. More than 50% of this time involved counseling and coordination of care.
Anticipated Discharge: 24 - 48 hours
Subjective/Interval History
-
Date of Service: April 26, 2024
no acute distress sitting up comfortably in chair. Overall reports feeling well, tolerating Macdonald. Denies new acute issues at this time. Endorses weakness/ambulatory dysfunction, eager to start SNF rehab.
Objective Data
-
Vital Signs:
Vital Signs
Temp Pulse Resp BP Pulse Ox
97.5 F 76 14 128/70 97
04/26/24 07:00 04/26/24 07:00 04/26/24 07:00 04/26/24 07:00 04/26/24 07:00
I&O
04/25/24 04/26/24 04/27/24
06:59 06:59 06:59
Intake Total 480 / 480 1020 / 1020
Output Total 2175 / 2175 2175 / 2175
Balance -1695 / -1695 -1155 / -1155
[2024-04-26] MEDS: HEPARIN 5000 UNITS SC ×2 (08:26→19:39)
[2024-04-26] MEDS: FLOMAX 0.4 MG PO ×2 (08:26→19:39)
[2024-04-26] MEDS: PLAVIX 75 MG PO (08:26)
[2024-04-26] MEDS: MIRALAX 17 GRAMS PO (08:27)
[2024-04-26] MEDS: PROSCAR 5 MG PO (08:27)
[2024-04-26] MEDS: SENOKOT-S 1 TABLET PO (08:27)
[2024-04-26] MEDS: DESENEX/MITRAZOL/ZEASORB 1 APPLIC TOPICAL ×2 (08:31→19:40)
[2024-04-26 14:53] LABS: Calcium 11.3 mg/dl (8.4-10.2)
[2024-04-26 15:00] VITALS: BP 115/66
[2024-04-26 15:07] LABS: Vitamin D, 25-OH*** 57.9 ng/mL (30-80)
[2024-04-26 15:26] VITALS: BP 115/66
--- NOTE | 2024-04-26 16:08 | CM ---
CM met several times with Yossi and his to discuss discharge plans. Yossi feels that he is getting more and more weak and is very frustrated that he has been sitting or laying down most of the time he has been here. He wants to get to a
facility where he can get rehabilitation services daily with a goal to return home with his . As previously documented, Yossi did have a 3 day stay -04/10/2024 which should allow him to go to SNF despite OBS status. Unfortunately the
facility where he would like to go is interpreting the Medicare Guidelines as if he would need to have another inpatient 3 day stay to qualify for admission.
Plan: VALERIE has updated Yossi and his and will follow up with the SNF in am to continue attempts to coordinate transfer.
[2024-04-26] MEDS: NON-FORMULARY ITEM 1 UNIT PO (17:37)
[2024-04-26] MEDS: ALTACE 10 MG PO (22:18)
[2024-04-26] MEDS: NEURONTIN 100 MG PO (22:19)
[2024-04-26] MEDS: NORVASC 5 MG PO (22:19)
[2024-04-26 23:00] VITALS: BP 110/68
[2024-04-27 06:54] VITALS: BP 118/67
[2024-04-27 07:27] LABS: Hematocrit 42.3 % (39.0-52.0); Hemoglobin 14.4 g/dL (13.0-18.0); Mean Corpuscular Hgb 32.4 pg (27.0-31.0); Mean Corpuscular Volume 95.3 fL (80.0-94.0); Mean Platelet Volume 9.9 fL (7.4-10.4); Platelet Count 173 10^3/uL (130-400); Red Blood Cell Count 4.44 10^6/uL (4.70-6.10); Red Cell Dist. Width 13.7 % (11.5-14.5); White Blood Cell Count 8.7 10^3/uL (4.8-10.8)
--- NOTE | 2024-04-27 07:30 | W.PN.HOSP.TC ---
Today's Communication/Plan
-
stable for discharge pending SNF placement
Assessment / Plan
Assessment / Plan
Physical Exam
General: Well Developed, Well Nourished and No Apparent Distress
HEENT: NormoCephalic, Moist mucous membranes and Atraumatic
Respiratory: Clear
Cardiac: S1/S2 and Regular Rhythm; No Murmur or Rub
GI: Soft, Non Tender, Non Distended and Normal Bowel Sounds; No Organomegaly
�Macdonald in place, draining clear yellow urine
Musculoskeletal: No Clubbing, No Cyanosis, No Edema
Skin: No Rash
Neuro: AO x 3 and Nonfocal/grossly intact
Psych: Calm
# Urinary retention/history of UTI/chronic outlet obstruction/neurogenic bladder
#urinary retention likely due to chronic bladder outlet obstruction vs neurogenic bladder.
#Moderate right hydronephrosis without obstructing cause except for prostate
-Ultrasound renal with bladder with impression of Moderate right hydronephrosis without an obstructing cause identified sonographically. Findings suggesting chronic outlet obstruction changes and/or neurogenic bladder. Absent left kidney.
-Macdonald placed, outpt F/u Urology for TOV recommended.
-completed abx treatment
-UA clear
-ctm
-Continue tamsulosin, finasteride
# Generalized weakness/deconditioning
-PT/OT consult appreciated SNF rehab
-attribute to abx course with diarrhea and prolonged immobility
#Essential HTN
- continue Norvasc, Chlorthalidone, Ramipril with hold parameter
#Hx of CAD s/p stents
- Plavix continued
#Hx of CVA
-with right sided weakness
#Neuropathy
- gabapentin continued
#Hyperlipidemia
- statin continued
#Chronic Mild Hypercalcemia
known to patient, present for years
continue follow up with primary care provider
#DVT prophylaxis: HSQ
Medically stable for discharge pending SNF placement
discussed with patient, patient's Trudy, nurse, and special education case manager.
I spent a total of 35 minutes with the patient or on the floor. More than 50% of this time involved counseling and coordination of care.
Anticipated Discharge: 24 - 48 hours
Subjective/Interval History
-
Date of Service: April 27, 2024
Objective Data
-
Labs:
Laboratory Results
04/27/24
07:04
WBC 8.7
Hgb 14.4
Hct 42.3
Plt Count 173
Sodium Pending
Potassium Pending
Chloride Pending
Carbon Dioxide Pending
BUN Pending
Creatinine Pending
Glucose Pending
Calcium Pending
Vital Signs:
Vital Signs
Temp Pulse Resp BP Pulse Ox
97.4 F 77 18 110/68 97
04/26/24 23:00 04/26/24 23:00 04/26/24 23:00 04/26/24 23:00 04/26/24 23:00
I&O
04/26/24 04/27/24 04/28/24
06:59 06:59 06:59
Intake Total 1020 / 1020 600 / 600
Output Total 2175 / 2175 2450 / 2450
Balance -1155 / -1155 -1850 / -1850
[2024-04-27 07:54] LABS: Blood Urea Nitrogen 43 mg/dl (9-20); Calcium 10.6 mg/dl (8.4-10.2); Carbon Dioxide 31 mmol/L (22-30); Chloride 102 mmol/L (98-107); Estimated Creatinine Clearance 57 ml/min; Glucose 101 mg/dl (70-99); Magnesium 1.9 mg/dl (1.6-2.3); Potassium 4.8 mmol/L (3.5-5.1); Sodium 139 mmol/L (135-145); eGFR > 60.00
[2024-04-27] MEDS: PLAVIX 75 MG PO (08:03)
[2024-04-27] MEDS: FLOMAX 0.4 MG PO ×2 (08:03→21:30)
[2024-04-27] MEDS: Hygroton 25 MG PO (08:03)
[2024-04-27] MEDS: HEPARIN 5000 UNITS SC ×2 (08:03→21:30)
[2024-04-27] MEDS: PROSCAR 5 MG PO (08:03)
[2024-04-27] MEDS: DESENEX/MITRAZOL/ZEASORB 1 APPLIC TOPICAL ×2 (08:05→21:37)
--- NOTE | 2024-04-27 09:17 | CM ---
Call placed to [facility] to follow up regarding admission. Mr. Sheridan only wanst [facility], as it is very close to home and he has friends who have been there.
Await response from [facility].
--- NOTE | 2024-04-27 12:04 | CM ---
VALERIE spoke with Yossi this AM to make him aware that at the current time [facility] is not accepting for admission. Urinary Retention is not a 'billable diagnosis' for SNF. VALERIE spoke with [facility] admissions and reviewed the medical issues:
Moderate (R) Hydronephrosis, absent left kidney, chronic outlet obstruction and/or neurogenic bladder; history of CVA with R sided weakness, neuropathy. Amanda will review these dx with [facility] and [facility] to determine if Yossi can be reconsidered
for admission.
Plan: VALERIE continues to advocate for SNF admission at [facility] per pt's wishes.
--- NOTE | 2024-04-27 14:59 | PN.CDI ---
CDI
- -
CDI:
Physician Documentation Request
Admit Date: 04/26/24 16:15
Dear Doctor Pinky,
Clinical Indicators:
Patient admitted with urinary retention.
04/26 PN, 'Urinary retention/history of UTI/chronic outlet obstruction/neurogenic bladder...Moderate right hydronephrosis without obstructing cause except for prostate'
Please clarify the likely relationship between these conditions:
Yes, urinary retention is related to/associated with/due to chronic bladder outlet obstruction/neurogenic bladder.
No, urinary retention is not related to/associated with/due to chronic bladder outlet obstruction/neurogenic bladder but it is due to ___. (Please specify)
Unable to determine
Use of terms such as suspected, likely, concern for, or probable (associated with a specific diagnosis that is being evaluated, monitored, or treated as if it exists) are acceptable and can be coded in the inpatient setting, when documented at the
time of discharge.
Thank you,
Bailey Robles RN BSN
CDI Specialist
available via tiger text
Please use your independent medical judgment in providing your response.
--- NOTE | 2024-04-27 15:05 | WOUNDNOTE ---
R 3RD TOE
--- NOTE | 2024-04-27 15:05 | WOUNDNOTE ---
L DORSAL FOOT AND LOWER LEG
--- NOTE | 2024-04-27 15:06 | WOUNDNOTE ---
CANDELARIO RN note: Patient admitted with acute urinary retention.
See H&P for complete history. Lives with .
PMH: L kidney removed, CABG, spinal fusion-back pain, stroke, CAD,HTN, UTI, DM.
Wound Location and type/assessment: Patient admitted with: R lower leg blister now open venous ulcer. 2-3+ edema in both feet. + audible pulses with Doppler. Heels are intact, blanchable red. Patient states he uses Tubigrip at home for compression.
Patient reports legs much less swollen since admission. Patient able to stand on own from chair with use of walker, sacrum is intact.
Appetite: Good.
Pressure redistribution devices in place: Air bed, pillow placed under heels elevated legs on foot stool.
Plan: Local wound care to R leg, moisturize legs and omid wraps knee high daily.
Will confirm orders with hospitalist and updated nurse.
Updated care plan and will follow as needed.
Note to case management of equipment requested for discharge: VN
Recommend follow up at wound care center upon discharge.
[2024-04-27 15:49] VITALS: BP 119/65
--- NOTE | 2024-04-27 16:13 | CM ---
CM made multiple referrals to SNF today:
[facility] - will not accept with diagnosis despite 3 day IP stay.
[facility] - No bed available.
[facility] - No bed available.
[facility] - no response to referral
[facility] - Pt accepted and plan for transfer tomorrow.
CM will continue to follow to arrange transportation via w/c van to [facility].
--- NOTE | 2024-04-27 16:54 | PTCARENOTE ---
Received patient this am AAOX3. Pt OOB to chair an tolerated well. Macdonald draining clear yellow urine without difficulty. Tolerated diet well. Pt offered no complaints. Made patient comfortable. Cont to assess patient status.
[2024-04-27] MEDS: NEURONTIN 100 MG PO (21:31)
[2024-04-27] MEDS: ALTACE 10 MG PO (21:38)
[2024-04-27] MEDS: NORVASC 5 MG PO (21:38)
[2024-04-27 23:00] VITALS: BP 127/79
[2024-04-28] MEDS: TYLENOL 650 MG PO (04:51)
--- NOTE | 2024-04-28 04:59 | DOWNTIME ---
There was a [facility] Client Sanforizing Machine Operator Downtime on 04/28/2024 from 0100 to 04/28/2024 at 0300. Downtime documentation of patient's care, including medication administrations, has been reconciled in the electronic record per guidelines. Refer to the
patient's paper chart under the miscellaneous tab to see printed paper medication records and downtime forms.
[2024-04-28 06:21] LABS: Hematocrit 40.6 % (39.0-52.0); Hemoglobin 13.8 g/dL (13.0-18.0); Mean Corpuscular Hgb 31.6 pg (27.0-31.0); Mean Corpuscular Volume 92.9 fL (80.0-94.0); Platelet Count 192 10^3/uL (130-400); Red Blood Cell Count 4.37 10^6/uL (4.70-6.10); Red Cell Dist. Width 13.5 % (11.5-14.5)
[2024-04-28 06:46] LABS: Blood Urea Nitrogen 43 mg/dl (9-20); Calcium 10.5 mg/dl (8.4-10.2); Carbon Dioxide 30 mmol/L (22-30); Chloride 100 mmol/L (98-107); Estimated Creatinine Clearance 57 ml/min; Glucose 114 mg/dl (70-99); Magnesium 1.9 mg/dl (1.6-2.3); Phosphorus 2.8 mg/dl (2.5-4.5); Potassium 3.7 mmol/L (3.5-5.1); Sodium 138 mmol/L (135-145); eGFR > 60.00
[2024-04-28 06:54] VITALS: BP 123/72
--- NOTE | 2024-04-28 08:08 | W.PN.HOSP.TC ---
Today's Communication/Plan
-
discharge
Assessment / Plan
Assessment / Plan
Physical Exam
General: Well Developed, Well Nourished and No Apparent Distress
HEENT: NormoCephalic, Moist mucous membranes and Atraumatic
Respiratory: Clear
Cardiac: S1/S2 and Regular Rhythm; No Murmur or Rub
GI: Soft, Non Tender, Non Distended and Normal Bowel Sounds; No Organomegaly
�Macdonald in place, draining clear yellow urine
Musculoskeletal: No Clubbing, No Cyanosis
Neuro: AO x 3 and Nonfocal/grossly intact
Psych: Calm
78M CAD, UTI, urinary retention, CAD, CVA, HLD p/w inability to void. Patient had previous hospitalization 04/06-04/10 for complicated UTI urinary retention requiring Macdonald. Discharged home w/ home services, he followed up with urology outpatient
and passed trial of void, Macdonald cath was removed on 04/13. Pt was voiding without any difficulty until day prior to presentation. Patient also significantly physically deconditioned.
# Urinary retention/history of UTI/chronic outlet obstruction/neurogenic bladder
#urinary retention likely due to chronic bladder outlet obstruction vs neurogenic bladder.
#Moderate right hydronephrosis without obstructing cause except for prostate
-Ultrasound renal with bladder with impression of Moderate right hydronephrosis without an obstructing cause identified sonographically. Findings suggesting chronic outlet obstruction changes and/or neurogenic bladder. Absent left kidney.
-Macdonald placed, outpt F/u Urology for TOV recommended.
-completed abx treatment
-UA clear
-ctm
-Continue tamsulosin, finasteride
# Generalized weakness/deconditioning
-PT/OT consult appreciated SNF rehab
-attribute to abx course with diarrhea and prolonged immobility
#Essential HTN
- continue Norvasc, Chlorthalidone, Ramipril with hold parameter
#Hx of CAD s/p stents
- Plavix continued
#Hx of CVA
-with right sided weakness
#Neuropathy
- gabapentin continued
#Hyperlipidemia
- statin continued
#Chronic Mild Hypercalcemia
known to patient, present for years
continue follow up with primary care provider
#RLE Blister open venous ulcer
#Chronic Lymphedema
Wound care eval appreciated
cont wound care MIGUE wraps
#DVT prophylaxis: HSQ
Medically stable for discharge SNF rehab with outpatient follow up recommendations.
discussed with patient and patient's Trudy
Total Time Preparing Discharge __40 minutes including examination of the patient, summary of the hospital stay, instructions for continuing care to all relevant caregivers; and preparation of discharge records, prescriptions, and referral
forms if necessary.
Anticipated Discharge: Today
Subjective/Interval History
-
Date of Service: April 28, 2024
Seen and examined at bedside in no acute distress sitting up comfortably in chair. Reports overall feeling well. Looking forward to discharge to SNF rehab.
Objective Data
-
Labs:
Laboratory Results
04/28/24
05:50
WBC 7.0
Hgb 13.8
Hct 40.6
Plt Count 192
Sodium 138
Potassium 3.7
Chloride 100
Carbon Dioxide 30
BUN 43 H
Creatinine 1.2
Glucose 114 H
Calcium 10.5 H
Vital Signs:
Vital Signs
Temp Pulse Resp BP Pulse Ox
97.7 F 80 18 127/79 95
04/27/24 23:00 04/27/24 23:00 04/27/24 23:00 04/27/24 23:00 04/27/24 23:00
I&O
04/27/24 04/28/24 04/29/24
06:59 06:59 06:59
Intake Total 600 / 600 960 / 960
Output Total 2450 / 2450 3150 / 3150
Balance -1850 / -1849 -2189 / -2189
[2024-04-28] MEDS: PROSCAR 5 MG PO (09:57)
[2024-04-28] MEDS: FLOMAX 0.4 MG PO (09:57)
[2024-04-28] MEDS: HEPARIN 5000 UNITS SC (09:58)
[2024-04-28] MEDS: PLAVIX 75 MG PO (09:58)
[2024-04-28] MEDS: HYDROPHOR 1 APPLIC TOPICAL (09:58)
[2024-04-28] MEDS: DESENEX/MITRAZOL/ZEASORB 1 APPLIC TOPICAL (09:59)
[2024-04-28 10:25] LABS: Intact PTH 133.5 pg/ml (13.6-85.8)
--- NOTE | 2024-04-28 12:09 | CM ---
CM following for discharge to [facility] today. Dr. Vance advised he would have the patient prepared for discharge by 3pm. W/C van transport request submitted with 3PM cotton picker operator time requested.
I met with Yossi to make him aware of plans and called his to update her re: same. She will be in today around 1PM; CM will provide cost for w/c van and phone number for her to call with payment for w/c van.
Plan: Discharge to [facility] today via w/c van transport.
[facility] Report:[phone]
[facility]
--- NOTE | 2024-04-28 14:44 | W.DCSUMMARY ---
Discharge Summary
Discharge Data
Date of Admission: 04/26/24
Date of Discharge: 04/28/24
-
Pending Results: No
Discharge Plan
-
Patient Disposition: Alf/SNF
Discharge Diagnosis/Procedures: Urinary retention likely due to chronic bladder outlet obstruction vs neurogenic bladder
Moderate right Hydronephrosis likely secondary to above
Macdonald Placed
Physical Deconditioning
Hypertension
History Coronary Artery Disease with Stent
History stroke with residual right sided Weakness
Neuropathy
Hyperlipidemia
Chronic Mild Hypercalcemia
Chronic Lymphedema
Condition: Fair
Diet: Low Cholesterol and 2 Gram Sodium
Activity: With assistance, As tolerated and With Walker
Driving Restrictions: Not until seen by your Dr
Bathing Restrictions: None
Blood Work: Please repeat BMP with primary care provider in 1 week of discharge
Others Tests: Please follow up with urology in 1-2 weeks of discharge for repeat Bladder Renal Ultrasound and trial of void
Other Services: PT and OT
Activity Restrictions/Additional Instructions:
Wound Care Instructions
R lower leg: clean with saline, adaptic, abd pad and angelique daily. Can add alginate over adaptic for increased drainage.
Sang wraps knee high both legs daily can remove at hs
leg elevation when sitting
Follow up at wound care center
Please follow up with primary care provider in 1 and Urology in 1 weeks of discharge.
Referrals:
Farhad Booker MD [Family Provider] - in one week
Maximo Yarbrough MD [Non-Admitting Privileges] - in one week
Prescriptions:
New
acetaminophen 325 mg Tablet
650 mg PO Q4HPRN PRN (Reason: mild pain/SETHI/temp> 100.4F) Qty: 60 0RF
polyethylene glycol 3350 [HealthyLax] 17 gram Powder In Packet
17 g PO DAILYPRN PRN (Reason: constipation) Qty: 30 0RF
sennosides-docusate sodium 8.6-50 mg Tablet
1 tab PO BIDPRN PRN (Reason: constipation) Qty: 60 0RF
Continued
clopidogrel 75 mg tablet
75 mg PO DAILY
chlorthalidone 25 mg tablet
25 mg PO Q48H
amlodipine 5 mg tablet
5 mg PO HS
tamsulosin 0.4 mg capsule
0.4 mg PO BID
gabapentin 100 mg capsule
100 mg PO HS
finasteride 5 mg tablet
5 mg PO DAILY
ramipril 10 mg capsule
10 mg PO HS
pitavastatin calcium 2 mg tablet
2 mg PO Q48H
Patient Comments:
04/22/24: States he cannot take a substitute, family willing to bring this medication from home.
ascorbic acid (vitamin C) [Vitamin C] 1,000 mg Tablet
1,000 mg PO DAILY
cholecalciferol (vitamin D3) 25 mcg (1,000 unit) Tablet
25 mcg PO DAILY
Discontinued
acetaminophen 650 mg Tablet Extended Release
1,300 mg PO BID MDD 4000 mg
amoxicillin 500 mg capsule
1,000 mg PO TID 12 Days Qty: 72 0RF
acetaminophen [Tylenol Arthritis] 650 mg Tablet Extended Release
1,300 mg PO DAILYPRN MDD 4000 mg PRN (Reason: mild pain)
Discharge Orders:
Discharge Patient (As Directed); Ordered 04/28/24
Ordered By: Ariane Vance
Discharge Date and Time
Print Language: BURMESE
[2024-04-28 15:25] VITALS: BP 123/72
== END 2024-04-28 17:18 | DRG 699 ==
LOC: 4 EAST ACU 16:15
PROVIDERS: Nurse Practitioner; Registered Nurse; ADMITTING PHYSICIAN Internal Medicine; ATTENDING PHYSICIAN Internal Medicine; EMERGENCY PHYSICIAN Emergency Medicine; FAMILY PHYSICIAN Family Medicine
DX: N32.0 Bladder-neck obstruction (principal); G81.91 Hemiplegia, unspecified affecting right dominant side; N13.30 Unspecified hydronephrosis; Q60.0 Renal agenesis, unilateral; I10 Essential (primary) hypertension; E78.00 Pure hypercholesterolemia, unspecified; E83.52 Hypercalcemia; N31.9 Neuromuscular dysfunction of bladder, unspecified; Z75.1 Person awaiting admission to adequate facility elsewhere
CPT/HCPCS: 51702; 51798; 76770; 80048; 80053; 81003; 81015; 82306; 83735; 83880; 83970; 84100; 85025; 85027; 87070; 97110; 97116; 97163; 97167; 97530; 99285

== ENCOUNTER → 2024-05-28 12:29 | Outpatient (REF) | payer MEDICARE, OTHER, SELFPAY | LOC: WOUND 12:29 | PROVIDERS: ATTENDING PHYSICIAN Surgery; FAMILY PHYSICIAN Family Medicine | DX: L89.610 Pressure ulcer of right heel, unstageable (principal); I89.0 Lymphedema, not elsewhere classified; I87.2 Venous insufficiency (chronic) (peripheral); I73.9 Peripheral vascular disease, unspecified; G81.91 Hemiplegia, unspecified affecting right dominant side; I25.10 Atherosclerotic heart disease of native coronary artery without angina pectoris | CPT/HCPCS: 99204 ==

== ENCOUNTER → 2024-06-04 13:30 | Outpatient (REF) | payer MEDICARE, OTHER, SELFPAY | LOC: WOUND 13:30 | PROVIDERS: ATTENDING PHYSICIAN Surgery; FAMILY PHYSICIAN Family Medicine | DX: L89.610 Pressure ulcer of right heel, unstageable (principal); I89.0 Lymphedema, not elsewhere classified; I87.2 Venous insufficiency (chronic) (peripheral); I73.9 Peripheral vascular disease, unspecified; G81.91 Hemiplegia, unspecified affecting right dominant side; I25.10 Atherosclerotic heart disease of native coronary artery without angina pectoris | CPT/HCPCS: 11042 ==

== ENCOUNTER → 2024-06-10 11:26 | Outpatient (REF) | payer MEDICARE, OTHER, SELFPAY | LOC: WOUND 11:26 | PROVIDERS: ATTENDING PHYSICIAN Surgery; FAMILY PHYSICIAN Family Medicine | DX: L89.610 Pressure ulcer of right heel, unstageable (principal); I89.0 Lymphedema, not elsewhere classified; I87.2 Venous insufficiency (chronic) (peripheral); I73.9 Peripheral vascular disease, unspecified; G81.91 Hemiplegia, unspecified affecting right dominant side; I25.10 Atherosclerotic heart disease of native coronary artery without angina pectoris | CPT/HCPCS: 99212 ==

== ENCOUNTER → 2024-06-18 14:21 | Outpatient (REF) | payer MEDICARE, OTHER, SELFPAY | LOC: WOUND 14:21 | PROVIDERS: ATTENDING PHYSICIAN Surgery | DX: L89.610 Pressure ulcer of right heel, unstageable (principal); I89.0 Lymphedema, not elsewhere classified; I87.2 Venous insufficiency (chronic) (peripheral); I73.9 Peripheral vascular disease, unspecified; G81.91 Hemiplegia, unspecified affecting right dominant side; I25.10 Atherosclerotic heart disease of native coronary artery without angina pectoris | CPT/HCPCS: 11042 ==

== ENCOUNTER → 2024-06-25 14:25 | Outpatient (REF) | payer MEDICARE, OTHER, SELFPAY | LOC: WOUND 14:25 | PROVIDERS: ATTENDING PHYSICIAN Surgery; FAMILY PHYSICIAN Family Medicine | DX: I89.0 Lymphedema, not elsewhere classified (principal); I87.2 Venous insufficiency (chronic) (peripheral); I73.9 Peripheral vascular disease, unspecified; G81.91 Hemiplegia, unspecified affecting right dominant side; I25.10 Atherosclerotic heart disease of native coronary artery without angina pectoris | CPT/HCPCS: 11042 ==

== ENCOUNTER → 2024-07-02 14:22 | Outpatient (REF) | payer MEDICARE, OTHER, SELFPAY | LOC: WOUND 14:22 | PROVIDERS: ATTENDING PHYSICIAN Surgery; FAMILY PHYSICIAN Family Medicine | DX: L89.610 Pressure ulcer of right heel, unstageable (principal); I89.0 Lymphedema, not elsewhere classified; I87.2 Venous insufficiency (chronic) (peripheral); I73.9 Peripheral vascular disease, unspecified; G81.91 Hemiplegia, unspecified affecting right dominant side; I25.10 Atherosclerotic heart disease of native coronary artery without angina pectoris | CPT/HCPCS: 11042 ==

== ENCOUNTER → 2024-07-02 14:27 | Outpatient (REF) | payer MEDICARE, OTHER, SELFPAY ==
[2024-07-02 16:22] LABS: % Basophils 0.6 % (0-2); % Eosinophils 1.3 % (0-6); % Immature Granulocytes 0.2 % (0-0.5); % Lymphocytes 22.6 % (20.5-51.1); % Monocytes 6.4 % (1.7-9.3); % Neutrophils 68.9 % (42.2-75.2); Absolute Basophils 0.1 10^3/uL (0-0.2); Absolute Eosinophils 0.1 10^3/uL (0-0.7); Absolute Lymphocytes 2.3 10^3/uL (1.2-3.4); Absolute Monocytes 0.6 10^3/uL (0.1-0.6); Absolute Neutrophils 6.9 10^3/uL (1.4-6.5); Hematocrit 42.5 % (39.0-52.0); Hemoglobin 13.8 g/dL (13.0-18.0); Mean Corp Hgb Conc. 32.5 g/dL (33.0-37.0); Mean Corpuscular Hgb 30.9 pg (27.0-31.0); Mean Corpuscular Volume 95.3 fL (80.0-94.0); Mean Platelet Volume 9.8 fL (7.4-10.4); Nucleated Red Blood Cells % 0 % (-); Platelet Count 299 10^3/uL (130-400); Red Blood Cell Count 4.46 10^6/uL (4.70-6.10); Red Cell Dist. Width 14.4 % (11.5-14.5)
[2024-07-02 16:41] LABS: APTT 30.1 Sec (23.4-35.0); INR 0.99; PT 13.4 Sec (11.4-14.6)
[2024-07-02 16:44] LABS: ALT (SGPT) 21 U/L (0-50); AST (SGOT) 21 U/L (17-59); Albumin 4.3 g/dl (3.5-5.0); Alkaline Phosphatase 76 U/L (38-126); Blood Urea Nitrogen 45 mg/dl (9-20); Calcium 10.6 mg/dl (8.4-10.2); Carbon Dioxide 29 mmol/L (22-30); Chloride 98 mmol/L (98-107); Glucose 126 mg/dl (70-99); Potassium 4.8 mmol/L (3.5-5.1); Sodium 141 mmol/L (135-145); Total Bilirubin 0.7 mg/dl (0.2-1.3); Total Protein 6.9 g/dl (6.3-8.2); eGFR > 60.00
== END ==
LOC: RAD 14:27
PROVIDERS: ATTENDING PHYSICIAN Urology; FAMILY PHYSICIAN Family Medicine
DX: Z01.811 Encounter for preprocedural respiratory examination (principal); N40.1 Benign prostatic hyperplasia with lower urinary tract symptoms; Z01.818 Encounter for other preprocedural examination; I25.10 Atherosclerotic heart disease of native coronary artery without angina pectoris; R79.1 Abnormal coagulation profile
CPT/HCPCS: 36415; 71046; 80053; 85025; 85610; 85730; 86900; 86901

== ENCOUNTER → 2024-07-16 14:52 | Outpatient (REF) | payer MEDICARE, OTHER, SELFPAY | LOC: WOUND 14:52 | PROVIDERS: ATTENDING PHYSICIAN Surgery; FAMILY PHYSICIAN Family Medicine | DX: L89.610 Pressure ulcer of right heel, unstageable (principal); L89.323 Pressure ulcer of left buttock, stage 3; L97.221 Non-pressure chronic ulcer of left calf limited to breakdown of skin; G81.91 Hemiplegia, unspecified affecting right dominant side; I87.2 Venous insufficiency (chronic) (peripheral); I73.9 Peripheral vascular disease, unspecified; I89.0 Lymphedema, not elsewhere classified; I25.10 Atherosclerotic heart disease of native coronary artery without angina pectoris | CPT/HCPCS: 99213 ==

== ENCOUNTER → 2024-07-22 13:27 | Outpatient (REF) | payer MEDICARE, OTHER, SELFPAY | LOC: RAD 13:27 | PROVIDERS: ATTENDING PHYSICIAN Surgery; FAMILY PHYSICIAN Family Medicine; REFERRING PHYSICIAN Internal Medicine Cardiovascular Disease | DX: L89.610 Pressure ulcer of right heel, unstageable (principal); I89.0 Lymphedema, not elsewhere classified; I73.9 Peripheral vascular disease, unspecified; I87.2 Venous insufficiency (chronic) (peripheral) | CPT/HCPCS: 93922; 93925; 93971 ==

== ENCOUNTER → 2024-07-27 13:47 | Outpatient (REF) | payer MEDICARE, OTHER, SELFPAY | LOC: WOUND 13:47 | PROVIDERS: ATTENDING PHYSICIAN Surgery; FAMILY PHYSICIAN Family Medicine | DX: L89.610 Pressure ulcer of right heel, unstageable (principal); L89.323 Pressure ulcer of left buttock, stage 3; L97.221 Non-pressure chronic ulcer of left calf limited to breakdown of skin; G81.91 Hemiplegia, unspecified affecting right dominant side; I87.2 Venous insufficiency (chronic) (peripheral); I73.9 Peripheral vascular disease, unspecified; I89.0 Lymphedema, not elsewhere classified; I25.10 Atherosclerotic heart disease of native coronary artery without angina pectoris | CPT/HCPCS: 99213 ==

== ENCOUNTER → 2024-08-27 14:27 | Outpatient (REF) | payer MEDICARE, OTHER, SELFPAY | LOC: WOUND 14:27 | PROVIDERS: ATTENDING PHYSICIAN Surgery; FAMILY PHYSICIAN Family Medicine | DX: L89.610 Pressure ulcer of right heel, unstageable (principal); G81.91 Hemiplegia, unspecified affecting right dominant side; I87.2 Venous insufficiency (chronic) (peripheral); I73.9 Peripheral vascular disease, unspecified; I89.0 Lymphedema, not elsewhere classified; I25.10 Atherosclerotic heart disease of native coronary artery without angina pectoris | CPT/HCPCS: 11042 ==

== ENCOUNTER → 2024-09-03 14:29 | Outpatient (REF) | payer MEDICARE, OTHER, SELFPAY | LOC: WOUND 14:29 | PROVIDERS: ATTENDING PHYSICIAN Surgery; FAMILY PHYSICIAN Family Medicine | DX: L89.610 Pressure ulcer of right heel, unstageable (principal); G81.91 Hemiplegia, unspecified affecting right dominant side; I87.2 Venous insufficiency (chronic) (peripheral); I73.9 Peripheral vascular disease, unspecified; I89.0 Lymphedema, not elsewhere classified; I25.10 Atherosclerotic heart disease of native coronary artery without angina pectoris | CPT/HCPCS: 99213 ==

== ENCOUNTER → 2024-09-09 14:24 | Outpatient (REF) | payer MEDICARE, OTHER, SELFPAY | LOC: WOUND 14:24 | PROVIDERS: ATTENDING PHYSICIAN Surgery; FAMILY PHYSICIAN Family Medicine | DX: L89.610 Pressure ulcer of right heel, unstageable (principal); G81.91 Hemiplegia, unspecified affecting right dominant side; I87.2 Venous insufficiency (chronic) (peripheral); I73.9 Peripheral vascular disease, unspecified; I89.0 Lymphedema, not elsewhere classified; I25.10 Atherosclerotic heart disease of native coronary artery without angina pectoris | CPT/HCPCS: 11042 ==

== ENCOUNTER → 2024-09-16 14:24 | Outpatient (REF) | payer MEDICARE, OTHER, SELFPAY | LOC: WOUND 14:24 | PROVIDERS: ATTENDING PHYSICIAN Surgery; FAMILY PHYSICIAN Family Medicine | DX: L89.610 Pressure ulcer of right heel, unstageable (principal); G81.91 Hemiplegia, unspecified affecting right dominant side; I87.2 Venous insufficiency (chronic) (peripheral); I73.9 Peripheral vascular disease, unspecified; I89.0 Lymphedema, not elsewhere classified; I25.10 Atherosclerotic heart disease of native coronary artery without angina pectoris | CPT/HCPCS: 17250; 99213 ==

== ENCOUNTER → 2024-09-23 14:38 | Outpatient (REF) | payer MEDICARE, OTHER, SELFPAY | LOC: WOUND 14:38 | PROVIDERS: ATTENDING PHYSICIAN Surgery; FAMILY PHYSICIAN Family Medicine | DX: L89.610 Pressure ulcer of right heel, unstageable (principal); G81.91 Hemiplegia, unspecified affecting right dominant side; I87.2 Venous insufficiency (chronic) (peripheral); I89.0 Lymphedema, not elsewhere classified; I25.10 Atherosclerotic heart disease of native coronary artery without angina pectoris; I73.9 Peripheral vascular disease, unspecified | CPT/HCPCS: 99213 ==

== ENCOUNTER → 2024-09-30 14:55 | Outpatient (REF) | payer MEDICARE, OTHER, SELFPAY | LOC: WOUND 14:55 | PROVIDERS: ATTENDING PHYSICIAN Surgery; FAMILY PHYSICIAN Family Medicine | DX: L89.610 Pressure ulcer of right heel, unstageable (principal); G81.91 Hemiplegia, unspecified affecting right dominant side; I87.2 Venous insufficiency (chronic) (peripheral); I73.9 Peripheral vascular disease, unspecified; I89.0 Lymphedema, not elsewhere classified; I25.10 Atherosclerotic heart disease of native coronary artery without angina pectoris | CPT/HCPCS: 99212 ==

== ENCOUNTER → 2025-03-15 08:55 | Outpatient (REF) | payer MEDICARE, OTHER, SELFPAY ==
[2025-03-15 11:31] LABS: Hematocrit 46.2 % (39.0-52.0); Hemoglobin 15.1 g/dL (13.0-18.0); Mean Corp Hgb Conc. 32.7 g/dL (33.0-37.0); Mean Corpuscular Volume 93.0 fL (80.0-94.0); Nucleated Red Blood Cells % 0 % (-); Platelet Count 243 10^3/uL (130-400); Red Cell Dist. Width 15.9 % (11.5-14.5)
[2025-03-15 11:46] LABS: ALT (SGPT) 17 U/L (0-50); AST (SGOT) 20 U/L (17-59); Albumin 4.4 g/dl (3.5-5.0); Alkaline Phosphatase 70 U/L (38-126); Blood Urea Nitrogen 49 mg/dl (9-20); Calcium 11.1 mg/dl (8.4-10.2); Carbon Dioxide 29 mmol/L (22-30); Chloride 105 mmol/L (98-107); Glucose 102 mg/dl (70-99); HDL Cholesterol 50 mg/dl; LDL Cholesterol, Calculated 108 mg/dl; Potassium 4.2 mmol/L (3.5-5.1); Sodium 141 mmol/L (135-145); Total Protein 7.2 g/dl (6.3-8.2); Very Low Density Lipoprotein 16 mg/dl (0-30); eGFR 56.23
== END ==
LOC: HWLAB 08:55
PROVIDERS: ATTENDING PHYSICIAN Internal Medicine Cardiovascular Disease; FAMILY PHYSICIAN Family Medicine
DX: I25.10 Atherosclerotic heart disease of native coronary artery without angina pectoris (principal); E78.00 Pure hypercholesterolemia, unspecified
CPT/HCPCS: 36415; 80053; 80061; 82248; 85025